=== PATIENT | female | born 1995 | race Caucasian/White ===

== ENCOUNTER → 2018-01-28 16:21 | Outpatient (CLI) | payer OTHER, SELFPAY | PROVIDERS: Visit Provider Otolaryngology Otolaryngology/Facial Plastic Surgery | DX: J02.9 Acute pharyngitis, unspecified (principal); J32.9 Chronic sinusitis, unspecified | CPT/HCPCS: 87070; 87077; 87186 ==

== ENCOUNTER → 2022-09-05 | Outpatient (CLI) | payer OTHER, SELFPAY ==
[2022-09-05 09:31] LABS: NATERA MAILED SPECIMEN
== END | disposition home or self-care (01) ==
PROVIDERS: Referring Provider Obstetrics & Gynecology; Visit Provider Obstetrics & Gynecology
DX: Z31.430 Encounter of female for testing for genetic disease carrier status for procreative management (principal)
CPT/HCPCS: 36415

== ENCOUNTER 2023-03-23 19:55 | Outpatient (CLI) | payer OTHER, SELFPAY ==
[2023-03-23] VITALS (12 sets, daily range): BP systolic 117–178; BP diastolic 67–95; PULSE 64–120; RESP 16; TEMP 36.9; O2SAT 98–100; BMI 35.2
[2023-03-23 20:58] LABS: ROM Internal Control Test YES-OK TO RESULT pt. (Internal QC)
[2023-03-23 20:59] LABS: ROM Patient Test Negative (Negative); Record Kit Lot#, ROM+ K1409
--- NOTE | 2023-03-27 10:35 | OB.TRI.NOTE ---
HPI - General General Date of Admission: 03/23/23 Date of Service: 03/23/23 Chief Complaint: possible leaking of fluid HPI Narrative TALA CAREY 27-year-old 1 para 0 presented on 03/23/2023 with vaginal discharge. She was evaluated in triage. Maternal Data Information Final JERONIMO: 04/11/23 Gestational age: 37 2/7 PFSH PFSH Allergy/AdvReac Type Severity Reaction Status Date / Time No Known Allergies Allergy Verified 03/23/23 20:17 NST FHR Rate Baby A Baseline: 130 Variability:: Moderate Accelerations:: 15 x 15 Decelerations:: None NST Reactive:: Yes FHR Category:: Category I Uterine Activity:: No regular contractions Assessment & Plan (1) 37 weeks gestation of : PLAN: 37-week [place] gravid patient with vaginal discharge. No evidence of spontaneous rupture membranes. Reactive nonstress test. Discharged home with routine follow-up and instructions. Return as needed.
== END 2023-03-23 21:14 | disposition home or self-care (01) ==
LOC: WPOUT 20:06 → WP 20:07
PROVIDERS: Visit Provider Obstetrics & Gynecology
DX: O99.891 Other specified diseases and conditions complicating pregnancy (principal); N89.8 Other specified noninflammatory disorders of vagina; Z3A.37 37 weeks gestation of pregnancy
CPT/HCPCS: 59025; 59050; 84112

== ENCOUNTER 2023-04-06 01:56 | Inpatient (IN) | payer OTHER, SELFPAY ==
[2023-04-06] VITALS (78 sets, daily range): BP systolic 103–177; BP diastolic 53–89; PULSE 81–141; RESP 16–18; TEMP 36.3–37.1; O2SAT 80–100; BMI 35.8
[2023-04-06 01:55] LABS: ROM Internal Control Test YES-OK TO RESULT pt. (Internal QC); ROM Patient Test POSITIVE (Negative)
[2023-04-06 01:56] LABS: Record Kit Lot#, ROM+ K1409
[2023-04-06 02:38] LABS: Absolute Lymphocyte Count 2.62 X10^3/uL (0.83-4.51); Absolute Neutrophil Count 8.4 X10^3/uL (2.0-7.7); Basophil# 0.04 X10^3/uL; Basophil% 0.3 % (0-1); Eosinophil# 0.14 X10^3/uL; Eosinophils% 1.2 % (0-5); Hematocrit 32.1 % (37-47); Hemoglobin 10.1 g/dL (12.0-15.0); Lymphocyte # 2.62 X10^3/ul (0.83-4.51); Mean Corp Hgb Conc 31.5 g/dL (32-36); Mean Corpuscular Volume 79.5 fL (81-99); Mean Platelet Vol. 10.3 fl (6.2-12.0); Monocyte# 0.62 X10^3/uL; Monocyte% 5.2 % (0-10); NRBC Flagged by Analyzer 0 % (0-5); Neutrophil % 70.5 % (47-70); Platelet Count 185 K/mm3 (150-450); RBC Distribution Width CV 14.6 % (11.6-14.6); RBC Distribution Width SD 39.6 fl (35.1-43.9); Red Blood Count 4.04 M/mm3 (4.2-5.4); White Blood Count 11.9 K/mm3 (4.4-11.0)
[2023-04-06] MEDS: miSOPROStol 25 MCG TABLET PO (02:46)
[2023-04-06 04:55] LABS: Syphilis Antibodies Non-reactive
--- NOTE | 2023-04-06 05:07 | NURSING ---
Reviewed and agreed with Darell PELAYO charting.
[2023-04-06] MEDS: 0.9% Normal Saline Single 100 ML IV.SOLN. INTRA-UTER (07:00)
[2023-04-06] MEDS: 0.9% Saline Lock 10 ML Syringe IV (07:55)
[2023-04-06] MEDS: LACTATED RINGERS 500 ML 999 ML IV (07:58)
[2023-04-06] MEDS: Lactated Ringers 1,000 ML 50 ML IV (07:58)
[2023-04-06] MEDS: fentaNYL-bupivacaine (epidural) 100 ML BAG EPIDURAL ×3 (09:09→18:18)
--- NOTE | 2023-04-06 09:18 | PCM.PN.BLA ---
Progress Note Introduced myself to patient- reviewed growth ultrasound findings with patient- approximately 5 weeks ago the EFW was 6lb 1oz (88%) and AC was >99%. reviewed with patient risk for should dystocia. Discussed with patient that would not perform operative vaginal delivery and would not recommend pushing for extended period of time if no descent. On my exam EFW on exam 8.5-9lb pelvis does feel adequate however maternal height 4'9, this was expressed to patient. pt wishes for epidural at this time and to labor at this time.
[2023-04-06] MEDS: ePHEDrine Sulfate 50 MG/ML Ampul 10 MG IM (09:21)
--- NOTE | 2023-04-06 09:44 | HP.PCM.OB_ITS ---
HPI - General General Date of Admission: 04/06/23 HPI Narrative TALA CAREY, is a 27 F at 39.2 weeks gestation who presents with spontaneous rupture of membranes and contractions. complicated by RH negative blood type, anemia and history of vaping. [facility] Medical History (Updated 04/06/23 @ 09:47 by Cathi Guerrero CNM) Anemia History of nicotine vaping PCOS (polycystic ovarian syndrome) Home Medications aspirin 81 mg tablet,delayed release (Adult Aspirin Regimen) 81 mg PO DAILY 04/06/23 [History Last Taken 04/05/23 08:00 81 mg] docosahexaenoic acid 200 mg capsule ( DHA) mg PO DAILY 04/06/23 [History Last Taken 04/05/23 08:00 200 mg] ferrous sulfate 325 mg (65 mg iron) tablet (Feosol) 325 mg PO DAILY 04/06/23 [History Last Taken 04/05/23 08:00 325 mg] omeprazole 20 mg capsule,delayed release 20 mg PO DAILY 04/06/23 [History Last Taken 04/05/23 08:00 20 mg] Allergy/AdvReac Type Severity Reaction Status Date / Time No Known Allergies Allergy Verified 04/06/23 01:39 Surgical History H/O wisdom tooth extraction Social History Smoking Status: Never smoker History Elective abortions Hx Para 0 Spontaneous abortions Hx # Term Pregnancies Ectopic pregnancies Hx # Pregnancies Multiple births # of living children ROS Eyes Eyes: Denies blurry vision, change in vision or spots in vision ENT HEENT: Denies dizziness or headache(s) Cardiovascular Cardiovascular: Denies abdominal pain, chest pain or dyspnea Respiratory/Chest Respiratory/Chest: Denies cough, dyspnea, shortness of breath at rest or shortness of breath with exertion Gastrointestinal Gastrointestinal: Denies abdominal pain, diarrhea or vomiting Genitourinary Genitourinary: Denies change in urinary stream, difficulty urinating or dysuria Musculoskeletal Musculoskeletal: Reports none Integumentary Integumentary: Denies rash Neurologic Neurologic: Denies dizziness, headache(s), memory loss or weakness Psychiatric Psychiatric: Reports none Vital Signs Vital Signs Vital Signs: 04/06/23 01:24 04/06/23 01:24 04/06/23 01:26 Temperature Temperature Source Pulse Rate 99 Blood Pressure 140/86 H 141/89 H BP Systolic 140 141 BP Diastolic 86 89 Pulse Ox 04/06/23 01:26 04/06/23 01:28 04/06/23 01:28 Temperature Temperature Source Pulse Rate 95 96 Blood Pressure BP Systolic BP Diastolic Pulse Ox 99 04/06/23 01:27 04/06/23 01:27 04/06/23 01:49 Temperature 97.7 F L Temperature Source Temporal Pulse Rate 98 Blood Pressure BP Systolic BP Diastolic Pulse Ox 04/06/23 01:49 04/06/23 02:07 04/06/23 02:07 Temperature Temperature Source Pulse Rate 94 Blood Pressure 139/87 H BP Systolic 139 BP Diastolic 87 Pulse Ox 80 04/06/23 06:28 04/06/23 06:28 04/06/23 06:28 Temperature Temperature Source Pulse Rate 106 H Blood Pressure 115/72 BP Systolic 115 BP Diastolic 72 Pulse Ox 99 04/06/23 06:27 04/06/23 06:27 04/06/23 06:27 Temperature 97.5 F L Temperature Source Temporal Pulse Rate Blood Pressure BP Systolic BP Diastolic Pulse Ox 99 04/06/23 07:12 04/06/23 07:12 04/06/23 07:12 Temperature Temperature Source Pulse Rate 110 H Blood Pressure 138/77 H BP Systolic 138 BP Diastolic 77 Pulse Ox 98 04/06/23 07:12 04/06/23 07:12 04/06/23 08:56 Temperature 98.1 F Temperature Source Temporal Pulse Rate 116 H Blood Pressure BP Systolic BP Diastolic Pulse Ox 04/06/23 08:56 04/06/23 09:01 04/06/23 09:01 Temperature Temperature Source Pulse Rate 119 H Blood Pressure BP Systolic BP Diastolic Pulse Ox 100 100 04/06/23 09:02 04/06/23 09:02 04/06/23 09:06 Temperature Temperature Source Pulse Rate 130 H Blood Pressure 131/62 H 177/89 H BP Systolic 131 177 BP Diastolic 62 89 Pulse Ox 04/06/23 09:06 04/06/23 09:06 04/06/23 09:12 Temperature Temperature Source Pulse Rate 117 H 119 H Blood Pressure BP Systolic BP Diastolic Pulse Ox 99 04/06/23 09:12 04/06/23 09:13 04/06/23 09:13 Temperature Temperature Source Pulse Rate 111 H Blood Pressure 110/53 L BP Systolic 110 BP Diastolic 53 Pulse Ox 89 04/06/23 09:16 04/06/23 09:17 04/06/23 09:17 Temperature Temperature Source Pulse Rate 105 H Blood Pressure 103/53 L BP Systolic 103 BP Diastolic 53 Pulse Ox 100 04/06/23 09:22 04/06/23 09:22 04/06/23 09:22 Temperature Temperature Source Pulse Rate 111 H Blood Pressure 114/55 L BP Systolic 114 BP Diastolic 55 Pulse Ox 100 04/06/23 09:22 04/06/23 09:26 04/06/23 09:26 Temperature Temperature Source Pulse Rate 113 H 88 Blood Pressure 109/58 L BP Systolic 109 BP Diastolic 58 Pulse Ox 04/06/23 09:27 04/06/23 09:27 04/06/23 09:30 Temperature Temperature Source Pulse Rate 81 Blood Pressure 108/58 L BP Systolic 108 BP Diastolic 58 Pulse Ox 100 04/06/23 09:30 04/06/23 09:32 04/06/23 09:32 Temperature Temperature Source Pulse Rate 91 89 Blood Pressure BP Systolic BP Diastolic Pulse Ox 100 04/06/23 09:37 04/06/23 09:37 04/06/23 09:38 Temperature Temperature Source Pulse Rate 102 H Blood Pressure 107/60 BP Systolic 107 BP Diastolic 60 Pulse Ox 100 04/06/23 09:38 04/06/23 09:41 04/06/23 09:41 Temperature Temperature Source Pulse Rate 111 H 97 Blood Pressure 113/69 BP Systolic 113 BP Diastolic 69 Pulse Ox 04/06/23 09:42 04/06/23 09:42 Temperature Temperature Source Pulse Rate 113 H Blood Pressure BP Systolic BP Diastolic Pulse Ox 99 Weight Weight: 165 lb 9.074 oz Body Mass Index (BMI) 35.8 Physical Exam Const alert, oriented x3 and no apparent distress General Appearance: cooperative Orientation / Consciousness: awake Exam Limitations: no limitations HEENT normocephalic Head and Scalp: normal to inspection Eyes General Eye: normal appearance of both eyes Neck full ROM and no lymphadenopathy Lymph Lymphatic: no lymphadenopathy noted Chest inspection of chest normal Resp normal respiratory effort, normal air movement and clear to auscultation bilaterally Effort and Inspection: able to speak in complete sentences and symmetric chest movement Cardio regular rate and regular rhythm GI normal to inspection, nondistended, normoactive bowel sounds Amniotic Fluid: clear amniotic fluid Back/Spine normal ROM Extremity full ROM and no calf tenderness Skin no rashes or lesions noted General Skin Exam: no breakdown Neuro oriented x3 and CN's II-XII intact bilaterally Psych mental status grossly normal and thought process normal Labs Labs Labs: Blood Type B NEGATIVE Antibody Screen NEGATIVE Hct 32.1 % (37-47) L Hgb 10.1 g/dL (12.0-15.0) L Syphilis Total Ab Non-reactive VZV IgG Antibody < 135 index (Immune >165) L GBS negative Assessment & Plan (1) 39 weeks gestation of : (2) Anemia: (3) Spontaneous onset of labor: (4) Spontaneous rupture of amniotic membranes: (5) Short stature: PLAN: Plan ROM PLUS- positive Admit to labor and delivery Routine labs Start IV and run fluids per orders GBS negative CE /-2- Forebag ruptured for clear fluids Desires epidural Dr Izaguirre notified of admission and involved with plan of care
[2023-04-06] MEDS: Oxytocin 15 Units/NS 250ml 15 UNITS/250 ML IV.SOLN 2 UNITS IV (10:22)
--- NOTE | 2023-04-06 11:43 | PCM.PN.BLA ---
Progress Note Patient comfortable with epidural. Denies any pain. Assessment & Plan Assessment/Plan (1) Short stature: (2) Spontaneous rupture of amniotic membranes: (3) Spontaneous onset of labor: (4) 39 weeks gestation of : (5) Anemia: PLAN: Plan Continue Pitocin IV and titrate per orders NST reactive. Cat. 1 tracing CE /-2 Continue present plan of care
[2023-04-06] MEDS: Lactated Ringers 1,000 ML 200 ML IV (12:20)
--- NOTE | 2023-04-06 14:21 | PCM.PN.BLA ---
Progress Note Received call from nursing due to patient's heart rate going up to 140 bpm. Patient stated feeling dizzy. Denies any CP or SOB. Assessment & Plan Assessment/Plan (1) Tachycardia: (2) 39 weeks gestation of : (3) Anemia: (4) Spontaneous onset of labor: (5) Spontaneous rupture of amniotic membranes: (6) Short stature: PLAN: Plan Current heart rate is 115 bpm Consult with Anesthesia EKG Continue close monitoring Dr. Izaguirre updated
--- NOTE | 2023-04-06 15:14 | EKG12_ITS ---
Test Reason : TACHY Blood Pressure : / mmHG Vent. Rate : 137 BPM Atrial Rate : 137 BPM P-R Int : 118 ms QRS Dur : 064 ms QT Int : 292 ms P-R-T Axes : 058 067 056 degrees QTc Int : 440 ms Sinus tachycardia Nonspecific ST abnormality Abnormal ECG No previous ECGs available Confirmed by JOSS ESQUIVEL, SHAHRAM ([id number]), manuscript editor HANNAH SINHA ([id number]) on 04/11/2023 9:53:20 AM Referred By: Susanne Pineda Confirmed By:SHAHRAM COREAS MD
[2023-04-06] MEDS: Mag Hydrox/Al Hydrox/Simeth 30 ML UDC PO (16:11)
[2023-04-06] MEDS: Ondansetron 4 MG/2 ML Vial IV (16:17)
[2023-04-06] MEDS: Acetaminophen 500 MG Tablet PO (19:28)
[2023-04-06] MEDS: Sodium Citrate/Citric Acid 30 ML UDC PO (19:31)
[2023-04-06] MEDS: Cefazolin 2 GM in 0.9% Normal Saline (100mL Bag) 100 ML IV (19:40)
[2023-04-06] MEDS: Azithromycin 500 MG in Dextrose 5%-Water (250mL Bag) 250 ML 250 MG IV (19:45)
--- NOTE | 2023-04-06 20:34 | OP.PCM_ITS ---
Details Operative Information Date of Procedure: 04/06/23 Pre-Operative Diagnosis: 39 weeks gestation, LGA, Anemia in , Arrest of dilation Post-Operative Diagnosis: same, live female Indications Narrative: Pt with SROM on 04/05/23 at 2130 - with arrest of dilation at 5.5-6cm/90 x 8 hrs on pitocin with adequate contractions. Classification: JOSE DAVID Procedure Type: low transverse groundskeeper porter #1: Jeana Higginbotham Type of Anesthesia: Epidural Anesthesiologist: Bradley Odom Special Medications: Demarco Antibiotic Given: Ancef 2 grams IV x1 and Zithromax 500 mg/5 mL X1 Drain: Hartman to straight drain Estimated Blood Loss: 600 Fluids Replaced: 700 Procedure Start Time: 20:01 Procedure Stop Time: 20:34 Time of Delivery: 20:04 Findings Description of Procedure: After informed consent was obtained the patient was taken the operating room. She was then placed in the supine position. She was prepped and draped in the normal sterile fashion. Epdiural Anesthesia was found to be adequate. At this time a Pfannenstiel skin incision was made with a knife was carried down to the underlying layer of the fascia. The fascial incision was then extended laterally using gentle traction. Attention was then turned to the superior aspect of the fascial edge was grasped with 2 straight Sharifa clamps tented up and the rectus muscle dissected off bluntly. Rectus muscles were then in the midline bluntly and peritoneum was entered bluntly. Gentle opposing traction was placed. At this time the vesicouterine peritoneum was identified. Scalpel was used to make a uterine incision in a low transverse fashion. The uterus was then entered bluntly gentle opposing traction was placed to extend this incision. Membranes were ruptured clear. 's head was brought to the uterine incision was delivered atraumatically. Delayed cord clamping performed- Cord was clamped and cut infant was handed to the waiting nursery team. The Placenta was removed from the uterus. The uterus was then removed from the abdominal cavity. The uterus was cleared of all clots and debris using a lap. At this time the uterine incision was reapproximated using #1 Vicryl in a running locked fashion. second layer in interrupted firgure of eight fashion using 1-0 vicryl. Hemostasis was appreciated. Posterior cul-de-sac was then cleared of all clots and debris. Uterus was placed back in the abdominal cavity. Gutters were cleared of all clots and debris. Uterine incision was reevaluated and noted to be of excellent hemostasis. Demarco placed. At this time the peritoneum was grasped with Kellys reapproximated using #2 Vicryl suture in a running fashion. Demarco placed over rectus muscle. Fascia was then reapproximated using #1 Vicryl in a running fashion. Subcu layer was irrigated, demarco placed and then reapproximated with #2 0 plain gut suture in an interrupted fashion. Subcu layer was closed using 4-0 Monocryl in a subcu fashion. Dry sterile dressing was applied. Instrument lap needle count correct ?2. Anticipated normal postoperative course. Presentation: Positive for Vertex Amniotic Membrane Rupture Type: Spontaneous Time of Membrane Ruptured: 04/05/23 at 2130 Amniotic Fluid Description: Clear Placental Delivery Description: Expressed Placenta Disposition: [facility] Cord Vessel Description: 3 Vessels Cord Entanglement: None Infant A Gender: Female (1 minute): 9 (5 minute): 9 Delayed Cord Clamping: Yes Complications Risks of Surgery Discussed w/Patient: Bleeding, Anesthesia Risks, Infection and Injury to surrounding structure(s) including bowel and bladder Complications: none
--- NOTE | 2023-04-06 20:40 | NURSING ---
Epidural catheter removed in OR at 2039 and blue tip confirmed and intact by Dr. Cuevas and Trey PELAYO
[2023-04-06] MEDS: Oxytocin 15 Units/NS 250ml 15 UNITS/250 ML IV.SOLN 83 UNITS IV (20:45)
[2023-04-06] MEDS: Ketorolac 30 MG/ML Syringe IV (21:26)
[2023-04-06] MEDS: Lactated Ringers 1,000 ML 100 ML IV (22:45)
[2023-04-07] VITALS (8 sets, daily range): BP systolic 98–127; BP diastolic 53–85; PULSE 79–107; RESP 14–18; TEMP 36.3–37.2; O2SAT 96–99
--- NOTE | 2023-04-07 00:59 | NURSING ---
Reviewed and agreed with Darell PELAYO charting. Report given to Shanelle PELAYO, taking over pt care at this time.
[2023-04-07] MEDS: Acetaminophen 500 MG Tablet 1000 MG PO ×4 (01:30→19:51)
[2023-04-07] MEDS: Ketorolac 30 MG/ML Syringe IV ×3 (04:00→17:22)
[2023-04-07 04:30] LABS: Hematocrit 23.5 % (37-47); Hemoglobin 7.4 g/dL (12.0-15.0); Mean Corp Hgb Conc 31.5 g/dL (32-36); Mean Corpuscular Hgb 24.9 pg (27.0-32.0); Mean Corpuscular Volume 79.1 fL (81-99); Mean Platelet Vol. 10.4 fl (6.2-12.0); Platelet Count 165 K/mm3 (150-450); RBC Distribution Width CV 14.8 % (11.6-14.6); RBC Distribution Width SD 39.8 fl (35.1-43.9); Red Blood Count 2.97 M/mm3 (4.2-5.4); White Blood Count 10.5 K/mm3 (4.4-11.0)
--- NOTE | 2023-04-07 05:19 | CPS ---
COACH OPERATOR left IS for RN to go over patient with, patient asleep
[2023-04-07] MEDS: Enoxaparin 40 MG/0.4 ML Syringe SC (07:57)
--- NOTE | 2023-04-07 09:07 | PCM.PN.OB ---
Subjective Subjective Doing well per patient and nursing staff. Ambulating and taking PO without difficulty. Voiding and passing flatus. Pain controlled. , services for assistance. Denies headache, visual changes, chest pain, shortness of breath, leg pain or increased bleeding. Lochia normal. Objective Data Objective Data Vital Signs: Vital Signs Temp Pulse Resp BP Pulse Ox O2 Del Method 97.3 F L 84 14 110/53 L 96 Room Air 04/07/23 08:01 04/07/23 08:01 04/07/23 08:01 04/07/23 08:01 04/07/23 08:01 04/07/23 08:01 Oxygen Delivery Method Room Air Weight: 165 lb 9.074 oz Body Mass Index (BMI) 35.8 Intake & Output: Intake and Output for Last 24 Hours 04/05/23 04/06/23 04/07/23 23:59 23:59 23:59 Intake Total 3176.30 / 3176.30 616.67 / 616.67 Output Total 1575 / 1575 400 / 400 Balance 1601.30 / 1601.30 216.67 / 216.67 Lab / Micro Data 04/07/23 04:10 Labs: Laboratory Results - last 24 hr 04/07/23 04:10: WBC 10.5, RBC 2.97 L, Hgb 7.4 L, Hct 23.5 L, MCV 79.1 L, MCH 24.9 L, MCHC 31.5 L, RDW Std Deviation 39.8, RDW Coeff of Zoila 14.8 H, Plt Count 165, MPV 10.4, Screen NEGATIVE, Baby's Blood Type O POSITIVE, Baby's JANE NEGATIVE ROS Constitutional Constitutional: Reports systems reviewed and no addt'l complaints, except as documented; Denies headache(s) Eyes Eyes: Denies acute decrease in peripheral vision, blurry vision or change in vision ENT HEENT: Reports systems reviewed and no addt'l complaints, except as documented Cardiovascular Cardiovascular: Denies chest pain or dizziness Respiratory/Chest Respiratory/Chest: Denies cough, dyspnea, dyspnea on exertion, shortness of breath at rest or shortness of breath with exertion Gastrointestinal Gastrointestinal: Denies abdominal pain, diarrhea, nausea or vomiting Genitourinary Genitourinary: Denies abdominal discomfort Musculoskeletal Musculoskeletal: Denies limited range of motion Integumentary Integumentary: Reports systems reviewed and no addt'l complaints, except as documented Neurologic Neurologic: Reports systems reviewed and no addt'l complaints, except as documented Psychiatric Psychiatric: Reports systems reviewed and no addt'l complaints, except as documented Endocrine Endocrinology: Reports systems reviewed and no addt'l complaints, except as documented Hematologic/Lymphatic Hematologic/Lymphatic: Reports systems reviewed and no addt'l complaints, except as documented Allergic/Immunologic Allergic/Immunologic: Reports systems reviewed and no addt'l complaints, except as documented Physical Exam Const alert and oriented x3 General Appearance: cooperative Orientation / Consciousness: awake, oriented to person, oriented to place and oriented to time Exam Limitations: no limitations HEENT normocephalic Head and Scalp: normal to inspection, normocephalic and atraumatic Face and Sinus: normal facial exam Eyes General Eye: normal appearance of both eyes Neck full ROM Chest Chest: symmetrical chest wall rise Resp normal respiratory effort and normal air movement Auscultation: clear to auscultation bilaterally Cardio regular rate, regular rhythm, S1 normal heart sound, S2 normal heart sound, no murmurs, no rub, no gallops and no clicks Cardio Narrative: Fundus firm 2 below U. Dressing dry and intact. Old blood with no increased drainage. GI normal to inspection, nondistended, normoactive bowel sounds and non-tender appearance of the vagina normal Bladder / Kidney Exam: no CVA tenderness Back/Spine normal ROM Extremity normal to inspection and full ROM Skin no rashes or lesions noted Neuro oriented x3, CN's II-XII intact bilaterally and moves all extremities Sensorium / Orientation: awake, alert and oriented to person Motor Exam: clonus absent Assessment & Plan (1) Status post primary low transverse section: (2) Acute blood loss anemia: (3) (): PLAN: Plan 1) POD#1 primary LTCS 2) Routine care 3) I&O 4) Pain management 5) Hgb decreased to 7.4 from 10.1 predelivery. Iron infusion with repeat CBC at 12 and 10/24 in am. 6) Planning D/C home tomorrow
[2023-04-07] MEDS: 0.9% Saline Lock 10 ML Syringe IV ×4 (10:31→17:22)
[2023-04-07] MEDS: Senna/Docusate Sodium 1 Tablet PO (10:32)
[2023-04-07 14:08] LABS: Absolute Lymphocyte Count 2.33 X10^3/uL (0.83-4.51); Absolute Neutrophil Count 7.6 X10^3/uL (2.0-7.7); Basophil# 0.03 X10^3/uL; Basophil% 0.3 % (0-1); Eosinophil# 0.05 X10^3/uL; Eosinophils% 0.5 % (0-5); Hemoglobin 7.1 g/dL (12.0-15.0); Lymphocyte # 2.33 X10^3/ul (0.83-4.51); Lymphocyte % 21.9 % (19-41); Mean Corp Hgb Conc 30.9 g/dL (32-36); Mean Corpuscular Hgb 24.8 pg (27.0-32.0); Mean Corpuscular Volume 80.4 fL (81-99); Mean Platelet Vol. 10.6 fl (6.2-12.0); Monocyte# 0.56 X10^3/uL; Monocyte% 5.3 % (0-10); NRBC Flagged by Analyzer 0 % (0-5); Neutrophil # 7.62 X10^3/uL (2.7-7.7); Neutrophil % 71.5 % (47-70); Platelet Count 188 K/mm3 (150-450); RBC Distribution Width CV 15.1 % (11.6-14.6); RBC Distribution Width SD 40.4 fl (35.1-43.9); Red Blood Count 2.86 M/mm3 (4.2-5.4); White Blood Count 10.6 K/mm3 (4.4-11.0)
[2023-04-07] MEDS: Iron Sucrose Complex 100 MG in 0.9% Normal Saline (100mL Bag) 100 ML 420 MG IV (14:22)
[2023-04-08] MEDS: Ibuprofen 600 MG Tablet PO ×3 (00:05→11:39)
[2023-04-08 01:58] VITALS: BP 118/68; PULSE 90; RESP 17; TEMP 36.3; O2SAT 98
[2023-04-08] MEDS: Acetaminophen 500 MG Tablet 1000 MG PO ×2 (02:10→08:16)
[2023-04-08 05:09] LABS: Absolute Lymphocyte Count 1.64 X10^3/uL (0.83-4.51); Absolute Neutrophil Count 6.7 X10^3/uL (2.0-7.7); Basophil# 0.04 X10^3/uL; Basophil% 0.4 % (0-1); Eosinophil# 0.07 X10^3/uL; Eosinophils% 0.8 % (0-5); Hematocrit 24.2 % (37-47); Hemoglobin 7.6 g/dL (12.0-15.0); Lymphocyte # 1.64 X10^3/ul (0.83-4.51); Lymphocyte % 18.1 % (19-41); Mean Corp Hgb Conc 31.4 g/dL (32-36); Mean Corpuscular Hgb 25.4 pg (27.0-32.0); Mean Corpuscular Volume 80.9 fL (81-99); Mean Platelet Vol. 9.9 fl (6.2-12.0); Monocyte# 0.53 X10^3/uL; Monocyte% 5.8 % (0-10); NRBC Flagged by Analyzer 0 % (0-5); Neutrophil # 6.73 X10^3/uL (2.7-7.7); Neutrophil % 74.3 % (47-70); Platelet Count 187 K/mm3 (150-450); RBC Distribution Width CV 15.9 % (11.6-14.6); RBC Distribution Width SD 41.3 fl (35.1-43.9); Red Blood Count 2.99 M/mm3 (4.2-5.4); White Blood Count 9.1 K/mm3 (4.4-11.0)
[2023-04-08] MEDS: 0.9% Saline Lock 10 ML Syringe IV (06:05)
[2023-04-08 08:00] VITALS: BP 116/72; PULSE 77; RESP 16; TEMP 36.2
[2023-04-08] MEDS: Senna/Docusate Sodium 1 Tablet PO (08:15)
[2023-04-08] MEDS: Enoxaparin 40 MG/0.4 ML Syringe SC (08:17)
--- NOTE | 2023-04-08 10:22 | PCM.PN.OB ---
Subjective Subjective Pain controlled Objective Data Objective Data Vital Signs: Vital Signs Temp Pulse Resp BP Pulse Ox O2 Del Method 97.1 F L 77 16 116/72 98 Room Air 04/08/23 08:00 04/08/23 08:00 04/08/23 08:00 04/08/23 08:00 04/08/23 01:58 04/08/23 01:58 Oxygen Delivery Method Room Air Weight: 165 lb 9.074 oz Body Mass Index (BMI) 35.8 Intake & Output: Intake and Output for Last 24 Hours 04/06/23 04/07/23 04/08/23 23:59 23:59 23:59 Intake Total 3176.30 / 3176.30 721.67 / 721.67 Output Total 1575 / 1575 1050 / 1050 Balance 1601.30 / 1601.30 -328.33 / -328.33 Lab / Micro Data 04/08/23 05:02 Labs: Laboratory Results - last 24 hr 04/07/23 13:50: WBC 10.6, RBC 2.86 L, Hgb 7.1 L, Hct 23.0 L, MCV 80.4 L, MCH 24.8 L, MCHC 30.9 L, RDW Std Deviation 40.4, RDW Coeff of Zoila 15.1 H, Plt Count 188, MPV 10.6, Immature Gran % (Auto) 0.500, Neut % (Auto) 71.5 H, Lymph % (Auto) 21.9, [place] % (Auto) 5.3, Eos % (Auto) 0.5, Baso % (Auto) 0.3, Absolute Neuts (auto) 7.6, Absolute Lymphs (auto) 2.33, Nucleated RBC % 0 04/08/23 05:02: WBC 9.1, RBC 2.99 L, Hgb 7.6 L, Hct 24.2 L, MCV 80.9 L, MCH 25.4 L, MCHC 31.4 L, RDW Std Deviation 41.3, RDW Coeff of Zoila 15.9 H, Plt Count 187, MPV 9.9, Immature Gran % (Auto) 0.600, Neut % (Auto) 74.3 H, Lymph % (Auto) 18.1 L, [place] % (Auto) 5.8, Eos % (Auto) 0.8, Baso % (Auto) 0.4, Absolute Neuts (auto) 6.7, Absolute Lymphs (auto) 1.64, Nucleated RBC % 0 Physical Exam Const alert, oriented x3 and no apparent distress HEENT normocephalic GI soft to palpation, non-tender and non-distended GI Narrative: fundus firm, mid & below umbilicus Incision - bandage c/d/i Extremity normal to inspection and no calf tenderness Assessment & Plan (1) Status post primary low transverse section: COMMENT: POD#2 PLAN: Plan D/c home per patient request
--- NOTE | 2023-04-08 10:25 | PCM.DC.SUM ---
Providers Date of Admission: 04/06/23 Primary Care Physician: Stacia Primary Care Phys Reason For Visit: Diagnosis Discharge Diagnosis (1) Status post primary low transverse section: Status: Acute Code(s): Z98.891 - History of uterine scar from previous surgery Plan D/c home per patient request Medications at Discharge Home Medications docosahexaenoic acid 200 mg capsule ( DHA) mg PO DAILY 04/06/23 ferrous sulfate 325 mg (65 mg iron) tablet (Feosol) 325 mg PO DAILY 04/06/23 omeprazole 20 mg capsule,delayed release 20 mg PO DAILY 04/06/23 acetaminophen 500 mg tablet 1,000 mg (2 x 500 mg) PO Q6H #0 tabs 04/08/23 ibuprofen 600 mg tablet 600 mg PO Q6H #0 tabs 04/08/23 Hospital Course Summary of Care Provided Minutes Spent on Discharge: 15 Weight / BMI Weight Weight: 165 lb 9.074 oz Body Mass Index (BMI) 35.8 ABG / Lab / Microbiology Data 04/08/23 05:02 Laboratory: Laboratory Results - last 24 hr 04/07/23 13:50: WBC 10.6, RBC 2.86 L, Hgb 7.1 L, Hct 23.0 L, MCV 80.4 L, MCH 24.8 L, MCHC 30.9 L, RDW Std Deviation 40.4, RDW Coeff of Zoila 15.1 H, Plt Count 188, MPV 10.6, Immature Gran % (Auto) 0.500, Neut % (Auto) 71.5 H, Lymph % (Auto) 21.9, [place] % (Auto) 5.3, Eos % (Auto) 0.5, Baso % (Auto) 0.3, Absolute Neuts (auto) 7.6, Absolute Lymphs (auto) 2.33, Nucleated RBC % 0 04/08/23 05:02: WBC 9.1, RBC 2.99 L, Hgb 7.6 L, Hct 24.2 L, MCV 80.9 L, MCH 25.4 L, MCHC 31.4 L, RDW Std Deviation 41.3, RDW Coeff of Zoila 15.9 H, Plt Count 187, MPV 9.9, Immature Gran % (Auto) 0.600, Neut % (Auto) 74.3 H, Lymph % (Auto) 18.1 L, [place] % (Auto) 5.8, Eos % (Auto) 0.8, Baso % (Auto) 0.4, Absolute Neuts (auto) 6.7, Absolute Lymphs (auto) 1.64, Nucleated RBC % 0 D/C Instructions Discharge Diet: No restrictions Discharge Activity: May Shower May resume sexual activity in: 6 weeks Weight Bearing Status: Weight bearing as tolerated Call your doctor if your incision/area has: Continuous Slow Oozing, Sudden Increased Bleeding, Increased Pain/ Swelling, Increased Redness, Foul Smelling Discharge and Swelling at the incision site Call your doctor if you observe: Fever of 101 or Higher, Coldness, Increased Pain, Change in Color, Inability to urinate, Inability to have a bowel movement, Using more than 1 pad per hour, Shortness of breath, Dizziness, Fainting spells, Chest pain, Increased palpitations (irregular heartbeat), Calf discomfort and Uncontrolled pain Suture Line Care: Avoid Pulling/Pushing and Avoid Pinching/Bending Remove Dressing in: 1 week Cleanse incision/area with: Soap & Water Please Follow Up With: Susanne Pineda MD When: Follow up in 2 and 6 weeks for visits. Meaningful Use Info Meaningful Use Diagnoses (Choose all that apply): None applicable Discharge Plan Admission Admit Date/Time: 04/06/23 01:56 Primary Reason for Your Visit: section Attending Provider: Susanne Pineda Primary Care Provider: Care Physician,No Primary Discharge Orders/Prescriptions Prescriptions: New acetaminophen 500 mg Tablet 1,000 mg PO Q6H Qty: 0 0RF ibuprofen 600 mg Tablet 600 mg PO Q6H Qty: 0 0RF Continued ferrous sulfate [Feosol] 325 mg (65 mg iron) tablet 325 mg PO DAILY DHA 200 mg capsule PO DAILY omeprazole 20 mg capsule,delayed release(DR/EC) 20 mg PO DAILY Discontinued aspirin [Adult Aspirin Regimen] 81 mg tablet,delayed release (DR/EC) 81 mg PO DAILY Referrals / Follow Up: Care Physician,No Primary [Primary Care Provider] - Disposition Disposition (needs filled in before D/C Order can be placed): Home, Self Care
== END 2023-04-08 13:00 | disposition home or self-care (01) | DRG 787 ==
LOC: WPOUT 01:57 → WP 01:57
PROVIDERS: Advanced Practice Midwife; Admitting Provider Obstetrics & Gynecology; Referring Provider Obstetrics & Gynecology; Visit Provider Obstetrics & Gynecology
DX: O62.0 Primary inadequate contractions (principal); D62 Acute posthemorrhagic anemia; O42.92 Full-term premature rupture of membranes, unspecified as to length of time between rupture and onset of labor; O36.63X0 Maternal care for excessive fetal growth, third trimester, not applicable or unspecified; O99.892 Other specified diseases and conditions complicating childbirth; R00.0 Tachycardia, unspecified; R42 Dizziness and giddiness; Z37.0 Single live birth; Z3A.39 39 weeks gestation of pregnancy; Z87.891 Personal history of nicotine dependence; O99.02 Anemia complicating childbirth
CPT/HCPCS: 59025; 59050; 84112; 85025; 85027; 85461; 86780; 86850; 86900; 86901; 93005; 99221; J1756; J7120; A4216; G0378; J2405; J2790

== ENCOUNTER → 2023-06-30 | Outpatient (CLI) | payer OTHER, SELFPAY ==
--- OUTSIDE RECORDS SUMMARY | 2023-06-30 07:17 | XMS RPT_ITS | CCD ---
Author Name Unknown Address [address] [place] [address] Organization [facility] Care Team Providers Care Type Disk Quality Control Supervisor Name Role Phone Unavailable Primary Care Provider Unavailabl e NEMANNYT AMEENA, JULIAN Attending Unavail able NEYMARLEET LINDQUIST, JULIAN Referring Unavail able DIANE CONTRERAS Attending Unavailable NEYHART LINDQUIST, JULIAN Referring Unavail able CATHI STEWART Attending Unavailable PLOTTS, CATHI Referring Unavailable PLOTTSCATHI Attending Unavailable PLOTTS, CATHI Referring Unavailable WON DEVLIN Attending Unavailable PLOTTSCATHI Attending Unavailable QUITA, KARMON Referring Unavailable JOSE MANUEL RUSSELL Attending Unavailable WISWELLSUMIT Attending Unavailable DARSHANA, GAYE Referring Unavailable PLOTTS, CATHI Attending Unavailable PLOTTS, CATHI Referring Unavailable WISWELL SUMIT Attending Unavailable PLOTTS, CATHI Attending Unavailable BERRY JOSE MANUEL Referring Unavailable QUITA, KARMON Referring Unavailable QUITA, KARMON Referring Unavailable QUITA, KARMON Referring Unavailable JOSE MANUEL RUSSELL Attending Unavailable PLOTTSCATHI Attending Unavailable NEYMARLEET AMEENA, JULIAN Attending Unavail able NEYMARLEET LINDQUISTBRISEIDA FOXRE Attending Unavail able WON DEVLIN Attending Unavailable NEYHART LINDQUIST, JULIAN Referring Unavail able DIANE CONTRERAS Attending Unavailable NEYHART LINDQUIST, JULIAN Attending Unavail able NEYHART LINDQUIST, JULIAN Referring Unavail able WON DEVLIN Attending Unavailable NEYHART LINDQUIST, JULIAN Referring Unavail able PLOTCATHI CONNELLY Attending Unavailable NEYHART LINDQUIST, JULIAN Attending Unavail able NEYHART LINDQUIST, JULIAN Referring Unavail able NEYHART LINDQUIST, JULIAN Attending Unavail able NEYHART LINDQUIST, JULIAN Referring Unavail able NEBRISEIDA HORANRE Referring Unavail able NEJULIAN HORAN Referring Unavail able Medications Completed/Discontinued Medications Medication Drug Class(es) Dates Sig (Normalized) Sig (Original) aspirin 81 mg delayed release oral tablet (18 sources) Platelet Aggregation Inhibitor, Nonsteroidal Anti-inflammatory Drug Start: 10-01-2022 take 1 tablet by mouth once daily aspirin, enteric coated (ASPIRIN, ENTERIC COATED) 81 mg EC tablet Take 1 tablet by mouth once daily. 0 10/01/2022 Active Problems Active Problems Problem Classification Problem Date Documented Date Episodic/Chronic Immunizations and screening for infectious disease (4 sources) Patient encounter status; Translations: [Encounter for screening for infections with a predominantly sexual mode of transmission] Episodic Other complications of (20 sources) Obesity; Translations: [Obesity complicating , unspecified trimester] Onset: 09-03-2022 Chronic Other complications of (4 sources) Maternal obesity complicating , childbirth and the puerperium, antepartum; Translations: [Obesity complicating , second trimester] Chronic Other complications of (14 sources) Anemia in mother complicating , childbirth AND/OR puerperium; Translations: [Anemia complicating , third trimester] Onset: 01-17-2023 01-17-2023 Chronic Other complications of (1 source) Anemia during - baby not yet delivered; Translations: [Anemia complicating , third trimester] 02-11-2023 Chronic Other complications of (1 source) Anemia of ; Translations: [Anemia complicating , third trimester] 03-28-2023 Chronic Other complications of (1 source) Obesity complicating , second trimester; Translations: [Obesity complicating , second trimester] Onset: 11-21-2022 Chronic Other complications of (1 source) Obesity complicating , unspecified trimester; Translations: [Obesity in ] Onset: 09-03-2022 Chronic Other complications of (1 source) Nausea and vomiting; Translations: [Vomiting of , unspecified] Episodic Other complications of (1 source) Reduced movement; Translations: [Decreased movements, third trimester, not applicable or unspecified] 02-14-2023 Episodic Other complications of (1 source) Uterine size for dates discrepancy; Translations: [Uterine size-date discrepancy, third trimester] 03-28-2023 Episodic Other endocrine disorders (1 source) Polycystic ovary syndrome; Translations: [Polycystic ovarian syndrome] Chronic Other endocrine disorders (2 sources) Polycystic ovarian syndrome; Translations: [PCOS (polycystic ovarian syndrome)] Onset: 07-29-2022 Chronic Other and delivery including normal (17 sources) test positive; Translations: [Encounter for test, result positive] Onset: 08-09-2022 Episodic Residual codes; unclassified (1 source) Gestation period, 16 weeks; Translations: [16 weeks gestation of ] Episodic Residual codes; unclassified (1 source) Gestation period, 23 weeks; Translations: [23 weeks gestation of ] Episodic Residual codes; unclassified (1 source) Gestation period, 27 weeks; Translations: [27 weeks gestation of ] 01-16-2023 Episodic Residual codes; unclassified (1 source) Gestation period, 29 weeks; Translations: [29 weeks gestation of ] 01-28-2023 Episodic Residual codes; unclassified (1 source) Gestation period, 31 weeks; Translations: [31 weeks gestation of ] 02-11-2023 Episodic Residual codes; unclassified (1 source) Gestation period, 32 weeks; Translations: [32 weeks gestation of ] 02-14-2023 Episodic Residual codes; unclassified (1 source) Gestation period, 34 weeks; Translations: [34 weeks gestation of ] 02-28-2023 Episodic Residual codes; unclassified (1 source) Gestation period, 37 weeks; Translations: [37 weeks gestation of ] 03-21-2023 Episodic Residual codes; unclassified (2 sources) Gestation period, 38 weeks; Translations: [38 weeks gestation of ] 03-28-2023 Episodic Residual codes; unclassified (1 source) 38 weeks gestation of ; Translations: [38 weeks gestation of ] Onset: 04-01-2023 Episodic Residual codes; unclassified (1 source) 37 weeks gestation of ; Translations: [37 weeks gestation of ] Onset: 03-28-2023 Episodic Residual codes; unclassified (1 source) 35 weeks gestation of ; Translations: [35 weeks gestation of ] Onset: 03-12-2023 Episodic Past or Other Problems Problem Classification Problem Date Documented Da te Episodic/Chronic Abdominal pain (5 sources) Pain in pelvis; Translations: [Pelvic and perineal pain] Onset: 07-29-2022 Episodic Diabetes or abnormal glucose tolerance complicating ; childbirth; or the puerperium (17 sources) Abnormal glucose level; Translations: [Abnormal glucose complicating ] Onset: 01-17-2023 01-17-2023 Episodic Other complications of (20 sources) RhD negative; Translations: [Other specified related conditions, unspecified trimester] Onset: 09-06-2022 09-06-2022 Episodic Other complications of (1 source) Vomiting of , unspecified; Translations: [Nausea and vomiting in ] Onset: 10-30-2022 Episodic Other screening for suspected conditions (not mental disorders or infectious disease) (4 sources) Encounter for other specified screening; Translations: [Encounter for screening, unspecified] Onset: 08-13-2022 Episodic Residual codes; unclassified (20 sources) FH: Congenital heart disease; Translations: [Family history of other congenital malformations, deformations and chromosomal abnormalities] Onset: 08-21-2022 Episodic Residual codes; unclassified (1 source) 31 weeks gestation of ; Translations: [31 weeks gestation of ] Onset: 02-28-2023 Episodic Residual codes; unclassified (1 source) 23 weeks gestation of ; Translations: [23 weeks gestation of ] Onset: 01-16-2023 Episodic Residual codes; unclassified (1 source) 19 weeks gestation of ; Translations: [19 weeks gestation of ] Onset: 11-21-2022 Episodic Residual codes; unclassified (1 source) 16 weeks gestation of ; Translations: [16 weeks gestation of ] Onset: 10-30-2022 Episodic Residual codes; unclassified (1 source) 12 weeks gestation of ; Translations: [12 weeks gestation of ] Onset: 10-01-2022 Episodic Screening and history of mental health and substance abuse codes (20 sources) History of clinical finding in subject; Translations: [Personal history of nicotine dependence] Onset: 08-21-2022 Episodic Results Test Name Value Interpretation Reference Range Facil ity Vital Signs Date Time Vital Sign Value Performing Clinician Marichuy brewer 05-15-2023 14:31-0500 Body temperature 97.5 [degF] Cathi Plotts PLATE DEVELOPER.CNM Work Phone: [facility] 05-15-2023 14:31-0500 Body weight 62.78 kg Cathi Stewart PLATE DEVELOPER.CNM Work Phone: [facility] 05-15-2023 14:31-0500 Diastolic blood pressure 68 mm[Hg] Cathi Stewart PLATE DEVELOPER.CNM Work Phone: [facility] 05-15-2023 14:31-0500 Systolic blood pressure 100 mm[Hg] Cathi Stewart PLATE DEVELOPER.CNM Work Phone: [facility] 04-01-2023 14:34-0400 Body weight 73.03 kg Jose Manuel Russell PLATE DEVELOPER.CNM Work Phone: [facility] 04-01-2023 14:34-0400 Diastolic blood pressure 70 mm[Hg] Jose Manuel Russell PLATE DEVELOPER.CNM Work Phone: [facility] 04-01-2023 14:34-0400 Systolic blood pressure 118 mm[Hg] Jose Manuel Russell PLATE DEVELOPER.CNM Work Phone: [facility] 03-28-2023 16:06-0400 Body weight 72.12 kg Diane Contreras MD Work Phone: [facility] 03-28-2023 16:06-0400 Diastolic blood pressure 70 mm[Hg] Diane Contreras MD Work Phone: [facility] 03-28-2023 16:06-0400 Systolic blood pressure 102 mm[Hg] Diane Contreras MD Work Phone: [facility] 03-21-2023 11:14-0400 Body weight 71.49 kg Jose Manuel Russell PLATE DEVELOPER.CNM Work Phone: [facility] 03-21-2023 11:14-0400 Diastolic blood pressure 68 mm[Hg] Jose Manuel Russell PLATE DEVELOPER.CNM Work Phone: [facility] 03-21-2023 11:14-0400 Systolic blood pressure 112 mm[Hg] Jose Manuel Russell PLATE DEVELOPER.CNM Work Phone: [facility] 02-14-2023 11:42-0400 Body weight 70.58 kg Won Devlin MD Work Phone: [facility] 02-14-2023 11:42-0400 Diastolic blood pressure 74 mm[Hg] Won Devlin MD Work Phone: [facility] 02-14-2023 11:42-0400 Systolic blood pressure 111 mm[Hg] Won Devlin MD Work Phone: [facility] 02-11-2023 16:09-0400 Body weight 68.95 kg Julian Lindquist MD Work Phone: [facility] 02-11-2023 16:09-0400 Diastolic blood pressure 66 mm[Hg] Julian Lindquist MD Work Phone: [facility] 02-11-2023 16:09-0400 Systolic blood pressure 120 mm[Hg] Julian Lindquist MD Work Phone: [facility] 01-28-2023 14:23-0400 Body weight 68.04 kg Julian Lindquist MD Work Phone: [facility] 01-28-2023 14:23-0400 Diastolic blood pressure 68 mm[Hg] Julian Lindquist MD Work Phone: [facility] 01-28-2023 14:23-0400 Systolic blood pressure 110 mm[Hg] Julian Lindquist MD Work Phone: [facility] 01-16-2023 15:34-0400 Body weight 68.49 kg Sumit Elias MD Work Phone: [facility] 01-16-2023 15:34-0400 Diastolic blood pressure 60 mm[Hg] Sumit Elias MD Work Phone: [facility] 01-16-2023 15:34-0400 Systolic blood pressure 100 mm[Hg] Sumit Elias MD Work Phone: [facility] 12-19-2022 16:11-0400 Body weight 67.13 kg Julian Lindquist MD Work Phone: [facility] 12-19-2022 16:11-0400 Diastolic blood pressure 70 mm[Hg] Julian Lindquist MD Work Phone: [facility] 12-19-2022 16:11-0400 Systolic blood pressure 108 mm[Hg] Julian Lindquist MD Work Phone: [facility] 10-30-2022 16:13-0400 Body weight 63.05 kg Julian Lindquist MD Work Phone: [facility] 10-30-2022 16:13-0400 Diastolic blood pressure 64 mm[Hg] Julian Lindquist MD Work Phone: [facility] 10-30-2022 16:13-0400 Systolic blood pressure 110 mm[Hg] Julian Lindquist MD Work Phone: [facility] 09-03-2022 10:08-0400 Body height 144.8 cm Julian Lindquist MD Work Phone: [facility] 09-03-2022 10:08-0400 Body weight 69.4 kg Julian Lindquist MD Work Phone: [facility] 09-03-2022 10:08-0400 Diastolic blood pressure 64 mm[Hg] Julian Lindquist MD Work Phone: [facility] 09-03-2022 10:08-0400 Systolic blood pressure 100 mm[Hg] Julian Lindquist MD Work Phone: [facility] 08-02-2022 13:19-0500 Body weight 70.4 kg Won Devlin MD Work Phone: [facility] 08-02-2022 13:19-0500 Diastolic blood pressure 70 mm[Hg] Won Devlin MD Work Phone: [facility] 08-02-2022 13:19-0500 Systolic blood pressure 102 mm[Hg] Won Devlin MD Work Phone: [facility] 07-24-2022 09:40-0500 Body weight 69.58 kg Cathi Stewart PLATE DEVELOPER.CNM Work Phone: [facility] 07-24-2022 09:40-0500 Diastolic blood pressure 68 mm[Hg] Cathi Stewart PLATE DEVELOPER.CNM Work Phone: [facility] 07-24-2022 09:40-0500 Systolic blood pressure 100 mm[Hg] Cathi Violetafernie PLATE DEVELOPER.CNM Work Phone: [facility] Encounters Encounter Date Encounter Type Care Provider Facility Start: 06-06-2023 End: 06-06-2023 ambulatory [facility] Facility:[facility] Start: 05-15-2023 End: 05-15-2023 ambulatory [facility] Facility:[facility] Start: 05-15-2023 End: 05-15-2023 Patient encounter procedure Cathi Stewart PLATE DEVELOPER.CNM Work Phone: OB/Gynecology Procedures Date Procedure Procedure Detail Performing Clinician Start: 04-01-2023 URINE OB DIP B/O Sammy Russell PLATE DEVELOPER.CNM Work Phone: Start: 03-28-2023 URINE OB DIP B/O Farooq Contreras MD Work Phone: Start: 03-21-2023 Iadna streptococcus group b amplified probe tq Jose Manuel Russell PLATE DEVELOPER.CNM Work Phone: Start: 03-21-2023 URINE OB DIP B/O Sammy Russell APRN.CNM Work Phone: Start: 02-28-2023 Us preg uterus after 1st trimest 1/ gestation Julian Lindquist MD Work Phone: Start: 02-14-2023 URINE OB DIP B/O Won Devlin MD Work Phone: Start: 02-11-2023 URINE OB DIP B/O Julian Lindquist MD Work Phone: Start: 01-28-2023 URINE OB DIP B/O Julian Lindquist MD Work Phone: Start: 01-16-2023 Antibody screen JULIAN LINDQUIST Plan of Treatment Date Care Activity Detail Author Start: 01-16-2033 Urine microalbumin profile [facility] Start: 10-27-2023 PAP TESTING PAP TESTING [facility] Start: 03-28-2023 End: 03-28-2024 OBSTETRIC ULTRASOUND [facility] Work Phone: Immunizations Immunization Date Immunization Notes Care Provider Viviana frias 01-16-2023 RHO(D) immune globul in- IV or IM Gaye Caputa PLATE DEVELOPER.SCIENCE TUTOR Work Phone: [facility] 01-16-2023 tetanus toxoid, redu domi diphtheria toxoid, and acellular pertussis vaccine, adsorbed Gaye Darshana PLATE DEVELOPER.SCIENCE TUTOR Work Phone: [facility] Payers Date Payer Category Payer Unknown [id number] 2020 Private Health Insurance IZABEL Isaac JENNAMorena JIMENEZ [id number] 2020-Present [phone] [address] [place] [address] Open Access [id number] 2020 Private Health Insurance [id number] 2020 Private Health Insurance [id number] Social History Date Type Detail Facility Start: 05-19-2018 End: 07-24-2022 Tobacco smoking status NHIS Never smoked tobacco [facility] Start: 05-19-2018 End: 07-24-2022 Tobacco use and exposure Smokeless tobacco non-user [facility] Start: 10-26-2020 End: 07-29-2022 Alcohol intake Current drinker of alcohol (finding) [facility] Start: 07-02-2019 History SDOH Alcohol Comment Socially [facility] Start: 1995 Sex Assigned At Not on file [facility] Start: 10-12-2021 End: 10-22-2021 Exposure to SARS-CoV-2 (event) Not sure [facility] Work Phone: Start: 1995 Sex Assigned At Female [facility] Start: 08-21-2022 End: 05-15-2023 Alcohol intake Ex-drinker (finding) [facility] Start: 08-21-2022 Education 16 [facility] Start: 07-19-2022 [facility] Start: 10-30-2022 End: 11-21-2022 History of Social function [facility] Start: 10-30-2022 End: 11-21-2022 Tobacco use panel [facility] National Score (1-10 0), lower number is lower risk 71 [facility] Start: 07-24-2022 Gender identity Identifies as female gender (finding) [facility] Start: 07-24-2022 Sexual orientation Heterosexual (fin ding) [facility] Clinical Notes 09-24-2021 to 06-06-2023 Cathi Stewart APRN.CNM - 05/15/2023 2:25 PM Ana Mccord RN - 04/07/2023 8:57 AM Ann Marie Lackey - 04/03/2023 12:34 PM EDTPatient InstructionsPatient InstructionsPatient Instructions Note Date & Type Note Facility 06-06-2023 Note HNO ID: [id number] Author: Cathi Stewart APRN.CNM Service: ? Author Type: Residential Gas Heat Technician Type: Progress Notes Filed: 06/06/2023 9:13 AM Note Text: Alisa presents today for IUD insertion for contraception. Patient's last menstrual period was 07/05/2022 (approximate). GC/chlamydia: Not done: no risk factors and/or patient declines screening test: negative Side effects including irregular bleeding were discussed with the patient. The patient understands that it should be removed in 8 years or sooner if the patient desires a . IUD source: office provided IUD lot #: [id number] Exp date: 05/15/2025 UNIVERSAL PROTOCOL / SAFETY CHECKLIST Procedure to be Performed: Mirena IUD Sign In: A Moment of CARE was completed. Personnel directly involved with the procedure wore the appropriate PPE (Personal Protective Equipment). Patient/Surrogate Stated/Verified: PATIENT VERIFIED(optional for EMERGENT procedures): Patient name, Date of , Relevant allergies, and The intended procedure Time Out Communication: Intended patient and procedure match the source documents. Consent documented and matches the intended procedure. Sign Out: SIGN OUT (optional for EMERGENT procedures): No specimen collected. The cervix was prepped with betadine. The uterus sounded to 8 cm and the uterus is Retroverted.. Using sterile technique, the Mirena IUD was inserted without difficulty and the string was cut to 1cm from the external os of the cervix. Patient tolerated procedure well. PLAN: Patient was advised to observe for signs and symptoms of infection including but not limited to fever, malodorous vaginal discharge and/or pain. The patient was told to check the string monthly for accurate placement. Bleeding expectations were reviewed. Follow up in one month. Cathi Stewart APRN.CNM [facility] 05-15-2023 Note HNO ID: [id number] Author: Cathi Stewart APRN.NAREN Service: ? Author Type: Residential Gas Heat Technician Type: Progress Notes Filed: 05/15/2023 2:50 PM Note Text: Compliance Manager offered: Patient declines. VISIT Alisa Carey is a 27 year old year old here for visit. Delivery Summary: c/s 04/06/2023 ROS/ Recovery: Feeding: Breast feeding- problems: None Menses since delivery: none Menstrual pattern prior to : Regular periods [place] since delivery: Resumed Depression: denies symptoms of depression. OB Depression and Anxiety Screening- This Encounter (since 05/14/2023) Over the past 2 weeks have you felt down, depressed, or hopeless? Negative Over the past two weeks, have you felt little interest or pleasure in doing things?? 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 Anemia ASCUS with positive high risk HPV cervical 2018 PCOS (polycystic ovarian syndrome) PAST SURGICAL HISTORY Procedure Laterality Date DELIVERY ONLY 04/06/2023 [facility] PAST SURGICAL HISTORY OF wisdom teeth FAMILY HISTORY Problem Relation Age of Onset Hypertension Mother Breast Cancer Mother Hypertension Father Hypertension Sister No Known Problems Sister other (pcos) Sister Stroke Maternal Grandmother Diabetes Maternal Grandfather Social History Tobacco Use Smoking status: Never Smokeless tobacco: Never Vaping Use Vaping Use: Former Quit date: 08/05/2022 Substances: Nicotine Substance Use Topics Alcohol use: Not Currently Comment: Socially Drug use: No PHYSICAL EXAMINATION: BP 100/68 Temp 97.5 Wt 138 lb 6.4 oz (62.8kg) LMP 07/05/2022 GENERAL: pleasant, female in no apparent distress HEENT: Normocephalic, atraumatic, mucus membranes moist, and no lesions NECK: Supple and full range of motion DERMATOLOGY: Normal and without lesions BREAST: soft, non-tender, symmetric, no dominant mass, normal nipple-areolar complex, no lymphadenopathy, and no nipple discharge CHEST: Normal inspiratory effort ABDOMEN: soft, non-tender, and no masses. INCISION: No incisional redness, swelling, or drainage PELVIC: external genitalia normal, normal Bartholin's glands, urethra, Grawn's glands, no vulvar lesions, good vaginal support, physiologic discharge present, normal appearing perineal body and perianal region BIMANUAL: uterus normal size, shape and consistency, no adnexal masses, non-tender, and no cervical motion tenderness NEURO: alert and oriented x3,exam grossly non-focal EXTREMITIES: normal ASSESSMENT AND PLAN: 27 year old status post CS with normal course. Contraception plan: IUD - Mirena Follow up: RTC for insertion of IUD Cathi Stewart APRN.CNM [facility] 05-15-2023 History of Presen t illness Narrative Compliance Manager offered: Patient declines. VISIT Alisa Carey is a 27 year old year old here for visit. Delivery Summary: c/s 04/06/2023 ROS/ Recovery: Feeding: Breast feeding- problems: None Menses since delivery: none Menstrual pattern prior to : Regular periods [place] since delivery: Resumed Depression: denies symptoms of depression. OB Depression and Anxiety Screening- This Encounter (since 05/14/2023) Over the past 2 weeks have you felt down, depressed, or hopeless? Negative Over the past two weeks, have you felt little interest or pleasure in doing things? 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 Anemia ASCUS with positive high risk HPV cervical 2018 PCOS (polycystic ovarian syndrome) PAST SURGICAL HISTORY Procedure Laterality Date DELIVERY ONLY 04/06/2023 [facility] PAST SURGICAL HISTORY OF wisdom teeth FAMILY HISTORY Problem Relation Age of Onset Hypertension Mother Breast Cancer Mother Hypertension Father Hypertension Sister No Known Problems Sister other (pcos) Sister Stroke Maternal Grandmother Diabetes Maternal Grandfather Social History Tobacco Use Smoking status: Never Smokeless tobacco: Never Vaping Use Vaping Use: Former Quit date: 08/05/2022 Substances: Nicotine Substance Use Topics Alcohol use: Not Currently Comment: Socially Drug use: No PHYSICAL EXAMINATION: BP 100/68 Temp 97.5 Wt 138 lb 6.4 oz (62.8kg) LMP 07/05/2022 GENERAL: pleasant, female in no apparent distress HEENT: Normocephalic, atraumatic, mucus membranes moist, and no lesions NECK: Supple and full range of motion DERMATOLOGY: Normal and without lesions BREAST: soft, non-tender, symmetric, no dominant mass, normal nipple-areolar complex, no lymphadenopathy, and no nipple discharge CHEST: Normal inspiratory effort ABDOMEN: soft, non-tender, and no masses. INCISION: No incisional redness, swelling, or drainage PELVIC: external genitalia normal, normal Bartholin's glands, urethra, Grawn's glands, no vulvar lesions, good vaginal support, physiologic discharge present, normal appearing perineal body and perianal region BIMANUAL: uterus normal size, shape and consistency, no adnexal masses, non-tender, and no cervical motion tenderness NEURO: alert and oriented x3,exam grossly non-focal EXTREMITIES: normal ASSESSMENT AND PLAN: 27 year old status post CS with normal course. Contraception plan: IUD - Mirena Follow up: RTC for insertion of IUD Cathi Stewart APRN.CNM documented in this encounter [facility] 04-17-2023 Note HNO ID: [id number] Author: Cathi Stewart APRN.CNM Service: ? Author Type: Residential Gas Heat Technician Type: Progress Notes Filed: 04/17/2023 9:44 AM Note Text: EARLY VISIT Alisa Carey is a 27 year old here for 2 week visit. Delivery Summary: C/S by DM on 04/06/2023 ROS: General: Denies any fever or chills Hypertension Screening: Headache? No. Visual Changes? No Epigastric Pain? No Increased Swelling? No Taking any BP medications at home? No If applicable, monitoring BP at home? (If Yes, include results) NA Mood: normal Depression: denies symptoms of depression. OB Depression and Anxiety Screening- This Encounter (since 04/16/2023) Over the past 2 weeks have you felt down, depressed, or hopeless? Negative Over the past two weeks, have you felt little interest or pleasure in doing things?? Negative Feeling nervous, anxious or on edge 1-Several days Not being able to stop or control worrying 0-Not al all Anxiety Pre-Screening Total (If >/= 3 additional questions will be reviewed) 1 Feeding: Breast feeding problems: None Bladder: No dysuria, gross hematuria, urinary frequency, urinary urgency, or incontinence Bowel symptoms: Negative for abdominal discomfort, blood in stools or black stools Abdomen: N/A Bleeding: light flow Bottom and Perineum: No issues Sleep: no sleep concerns, feels rested [place] since delivery: Not resumed Emotional support: Yes Exercise: N/A Other issues: None PHYSICAL EXAMINATION: BP 120/72 Wt 146 lb (66.2 kg) LMP 07/05/2022 (Approximate) Yes BMI 31.59 kg/m? General: pleasant,female in no apparent distress, AANDO x 3. Skin warm and intact. Breast: Deferred Abdomen: Deferred /Incision: No incisional redness, swelling, or drainage Dressing removed by patient at 5 days. Incision viewed with mirror. Pelvic: Deferred Bimanual: Deferred ASSESSMENT AND PLAN: 27 year old status post CS with normal course. Contraception plan: none. Unsure if interested in IUD replacement. Will decide by 6 week visit. Reinforced 6-week pelvic rest. Encouraged condom usage should patient deviate. Education: resources provided - see MA/RN note Follow up: Return to Clinic for 6 week visit and as needed Cathi Stewart APRN.NAREN [facility] 04-07-2023 Note HNO ID: [id number] Author: Ana Deluca RN Service: ? Author Type: ? Type: Progress Notes Filed: 04/07/2023 9:39 AM Note Text: Patient delivered via by Dr. Lindquist on 04/06/23 at [facility]. See OB history. Ana Deluca RN [facility] 04-07-2023 History of Presen t illness Narrative Patient delivered via by Dr. Lindquist on 04/06/23 at [facility]. See OB history. Ana Deluca RN documented in this encounter [facility] 04-03-2023 Note HNO ID: [id number] Author: Ann Marie Leal Service: ? Author Type: ? Type: Progress Notes Filed: 04/03/2023 12:39 PM Note Text: POPULATION HEALTH NAVIGATION OUTREACH Action/FYI Spoke to patient added regulatory coordinator to OB provider field Patient Identified by Name and : YES, via phone Outreach Outcome/Action Spoke to patient / parent / legal guardian: No action required (information or reminder only) Did you use a PCP flex slot to schedule this appointment? N/A Reason for Outreach Payer: Payor: [facility] / Plan: [facility] CHOICE PLUS / Product Type: HMO / Care Gap Reviewed:: N/A Reminder: Reminder note to check Health Maintenance for items below Health Maintenance items due: HPV Vaccine(1 - 2-dose series) Never done Hepatitis B Vaccine(3 of 3 - Hep B Twinrix 3-dose series) due on 09/14/2017 Depression Assessment Never done Influenza Vaccine(1) Never done Covid-19 Vaccine( season) due on 02/14/2023 Navigation Signature: Ann Marie Leal April 03, 2023 12:36 PM [facility] 04-03-2023 Note Patient Outreach (NE TNAV) ALISA CAREY ([id number]) 1995 F Date Time Provider Department 04/03/23 ANN MARIE LEAL During your visit today, we recorded the following information about you: Ann Marie Leal 04/03/2023 12:39 PM Signed POPULATION HEALTH NAVIGATION OUTREACH Action/ Spoke to patient added regulatory coordinator to OB provider field Patient Identified by Name and : YES, via phone Outreach Outcome/Action Spoke to patient / parent / legal guardian: No action required (information or reminder only) Did you use a PCP flex slot to schedule this appointment? N/A Reason for Outreach Payer: Payor: [facility] / Plan: [facility] CHOICE PLUS / Product Type: HMO / Care Gap Reviewed:: N/A Reminder: Reminder note to check Health Maintenance for items below Health Maintenance items due: HPV Vaccine(1 - 2-dose series) Never done Hepatitis B Vaccine(3 of 3 - Hep B Twinrix 3-dose series) due on 09/14/2017 Depression Assessment Never done Influenza Vaccine(1) Never done Covid-19 Vaccine( season) due on 02/14/2023 Navigation Signature: Ann Marie Leal April 03, 2023 12:36 PM Allergies As of Date: 04/03/2023 (No Known Allergies) Date Reviewed: 04/01/2023 Reviewed by: Vega Drew Cma - Fully Assessed Reason for Visit: Population Health Navigation Outreach [3910] Cmt: Ob/peds Prescriptions as of 04/03/2023 - [id number] fum-folic ac-om3 (ONE A DAY WOMEN'S DHA) 28 mg iron- 800 mcg cmpk Take by mouth. W/ iron - famotidine (PEPCID) 20 mg tablet Take 1 tablet by mouth twice daily. - ondansetron (ZOFRAN) 4 mg tablet Take 1 tablet by mouth every 8 hours as needed. - aspirin, enteric coated (ASPIRIN, ENTERIC COATED) 81 mg EC tablet Take 1 tablet by mouth once daily. - Ferrous Sulfate (SLOW FE) 142 mg (45 mg iron) TbER Take 3 tablets by mouth once daily. - vits62/FA/om3/dha/epa ( GUMMY ORAL) Take by mouth. Problem List As Of Date 04/03/2023 Noted Resolved History of nicotine vaping [Z87.891] 08/21/2022 Family history of congenital heart defect [Z82.*08/21/2022 Patient request for diagnostic testing [Z01.89] 08/21/2022 01/17/2023 Obesity in [O99.210] 09/03/2022 Rh negative state in antepartum period [O26.899*09/06/2022 Abnormal glucose complicating [O99.81*01/17/2023 Antepartum anemia complicating in thi*01/17/2023 Encounter Status:Closed by ANN MARIE LEAL on 04/03/23 [facility] 04-03-2023 History of Presen t illness Narrative POPULATION HEALTH NAVIGATION OUTREACH Action/FYI Spoke to patient added regulatory coordinator to OB provider field Patient Identified by Name and : YES, via phone Outreach Outcome/Action Spoke to patient / parent / legal guardian: No action required (information or reminder only) Did you use a PCP flex slot to schedule this appointment? N/A Reason for Outreach [place] Payer: Payor: [facility] / Plan: [facility] CHOICE PLUS / Product Type: HMO / Care Gap Reviewed:: N/A Reminder: Reminder note to check Health Maintenance for items below Health Maintenance items due: HPV Vaccine(1 - 2-dose series) Never done Hepatitis B Vaccine(3 of 3 - Hep B Twinrix 3-dose series) due on 09/14/2017 Depression Assessment Never done Influenza Vaccine(1) Never done Covid-19 Vaccine(3 - season) due on 02/14/2023 Navigation Signature: Ann Marie Leal April 03, 2023 12:36 PM documented in this encounter [facility] 04-01-2023 Miscellaneous Notes Formattin g of this note might be different from the original. ANA-S: Alisa Carey is a 27 year old female who presents at 38w4d with JERONIMO:04/11/2023, by Last Menstrual Period for a routine visit. Denies headache, visual changes, chest pain, shortness of breath, vaginal bleeding, leakage of fluid, or dysuria. Feeling well, no complaints. O: See flow sheet Gen: No apparent distress Abd: Gravid, nontender ASSESSMENT/PLAN: 1. 38 weeks gestation of 2. Encounter for supervision of normal first in third trimester P: 1) Labor instructions reviewed and when to call 2) RTO in 1 week 3) Growth US scheduled, S>D and last growth US at 34 weeks Jose Manuel Russell APRN.CNM documented in this encounter [facility] 04-01-2023 Instructions Vega Drew Cma - 04/01/2023 2:32 PM EDT SEQUENTIAL SCREENINGS The [facility] offers sequential screenings for women who are interested in screenings for chromosomal abnormalities and certain defects during a . The sequential screen combines ultrasound and blood tests to determine the risk of chromosomal abnormalities, including Down's Syndrome (Trisomy 21) and Trisomy 18, as well as open neural tube defects including spina bifida. Ultrasound examination is performed between 11 weeks and 13 weeks gestational age. Blood tests are drawn after the ultrasound and again later in the between 15 and 21 weeks gestational age. Please let your physician know if you are interested in this testing. It will require an appointment with our plastic eye technician. This is not an ultrasound performed by a physician in our office during a routine visit. SIGNS AND SYMPTOMS OF LABOR 1. Contractions every 10 minutes or more often 2. Clear, pink, or brownish fluid (water) leaking from vagina 3. Feeling that baby is pushing down, pressure 4. Low, dull backache 5. Cramps that feel like a period 6. Cramps with or without diarrhea If you notice any of the above symptoms, contact our office at [phone] and ask to speak with a nurse. After hours, you can call [employer] registry at [phone] OR call [facility] at [phone] and ask to have the doctor wilton weaver paged. If you consider this an emergency, dial 4-4-8 or go to your nearest emergency department. NEED HELP? Are you dealing with a violent or abusive relationship? Are you a victim of rape or sexual assult? Call [facility] ([place]) 24 hour Crisis Hotline: 358.468.8916 or 407-911-6213. MANUAL Your Guide to a Healthy manual is now on-line. Visit [email or web address] to download your free copy documented in this encounter [facility] 03-28-2023 Miscellaneous Notes Addended by: DIANE CONTRERAS on: 03/28/2023 04:42 PM Modules accepted: Orders RR- VB No. LOF No. CTXS No. Movement: present. Other c/o: No. Medication list reviewed. Physical Exam See Flow Sheet Abd: soft, nontender, gravid Ext: edema: Trace A/P 38w0d Estimated Date of Delivery: 04/11/23 emanuel counts growth scan short stature and S>D heartburn, d/w her symptomatic measures Diane Contreras M.D. documented in this encounter [facility] 03-28-2023 Instructions Mary Jane Moon Ma - 03/28/2023 4:07 PM EDT SEQUENTIAL SCREENINGS The [facility] offers sequential screenings for women who are interested in screenings for chromosomal abnormalities and certain defects during a . The sequential screen combines ultrasound and blood tests to determine the risk of chromosomal abnormalities, including Down's Syndrome (Trisomy 21) and Trisomy 18, as well as open neural tube defects including spina bifida. Ultrasound examination is performed between 11 weeks and 13 weeks gestational age. Blood tests are drawn after the ultrasound and again later in the between 15 and 21 weeks gestational age. Please let your physician know if you are interested in this testing. It will require an appointment with our plastic eye technician. This is not an ultrasound performed by a physician in our office during a routine visit. SIGNS AND SYMPTOMS OF LABOR 1. Contractions every 10 minutes or more often 2. Clear, pink, or brownish fluid (water) leaking from vagina 3. Feeling that baby is pushing down, pressure 4. Low, dull backache 5. Cramps that feel like a period 6. Cramps with or without diarrhea If you notice any of the above symptoms, contact our office at [phone] and ask to speak with a nurse. After hours, you can call doctors registry at [phone] OR call [facility] at [phone] and ask to have the doctor wilton weaver paged. If you consider this an emergency, dial 9--1 or go to your nearest emergency department. NEED HELP? Are you dealing with a violent or abusive relationship? Are you a victim of rape or sexual assult? Call [facility] ([place]) 24 hour Crisis Hotline: 232.776.9625 or 934-852-2440. MANUAL Your Guide to a Healthy manual is now on-line. Visit [email or web address] to download your free copy documented in this encounter [facility] 03-21-2023 Miscellaneous Notes Formattin g of this note might be different from the original. ANA-S: Alisa Carey is a 27 year old female who presents at 37w0d with JERONIMO:04/11/2023, by Last Menstrual Period for a routine visit. Good FM. Denies headache, visual changes, chest pain, shortness of breath, vaginal bleeding, leakage of fluid, or dysuria. Feeling well, no complaints. No signs of labor, irregular contractions. O: See flow sheet Gen: No apparent distress Abd: Gravid, nontender S=D, 2 lbs, cephalic, confirmed by limited bedside US. ASSESSMENT/PLAN: 1. 37 weeks gestation of 2. Encounter for supervision of normal first in third trimester P: 1) Labor precautions reviewed and when to call 2) RTO in 1 week 3) Growth US completed, 88th percentile. Discussed IOL vs expectant management. At this time, patient would like to await spontaneous labor. 4) Did not complete CBE or . Would like epidural during labor. Planning to breastfeed. Jose Manuel Russell APRN.CNM documented in this encounter [facility] 03-21-2023 Instructions Vega Drew Cma - 03/21/2023 11:13 AM EDT SEQUENTIAL SCREENINGS The [facility] offers sequential screenings for women who are interested in screenings for chromosomal abnormalities and certain defects during a . The sequential screen combines ultrasound and blood tests to determine the risk of chromosomal abnormalities, including Down's Syndrome (Trisomy 21) and Trisomy 18, as well as open neural tube defects including spina bifida. Ultrasound examination is performed between 11 weeks and 13 weeks gestational age. Blood tests are drawn after the ultrasound and again later in the between 15 and 21 weeks gestational age. Please let your physician know if you are interested in this testing. It will require an appointment with our plastic eye technician. This is not an ultrasound performed by a physician in our office during a routine visit. SIGNS AND SYMPTOMS OF LABOR 1. Contractions every 10 minutes or more often 2. Clear, pink, or brownish fluid (water) leaking from vagina 3. Feeling that baby is pushing down, pressure 4. Low, dull backache 5. Cramps that feel like a period 6. Cramps with or without diarrhea If you notice any of the above symptoms, contact our office at [phone] and ask to speak with a nurse. After hours, you can call doctors registry at [phone] OR call [facility] at [phone] and ask to have the doctor wilton weaver paged. If you consider this an emergency, dial or go to your nearest emergency department. NEED HELP? Are you dealing with a violent or abusive relationship? Are you a victim of rape or sexual assult? Call [facility] ([place]) 24 hour Crisis Hotline: 493.541.3612 or 170-893-8063. MANUAL Your Guide to a Healthy manual is now on-line. Visit [email or web address] to download your free copy documented in this encounter [facility] 02-21-2023 Miscellaneous Notes Formattin g of this note might be different from the original. FMLA completed, faxed to employer, scanned into EMR and filed in Nurses station. Bri Roa LPN FMLA completed and placed on providers desk for signature. Bri Roa LPN documented in this encounter [facility] 02-14-2023 Note HNO ID: [id number] Author: Won Devlin MD Service: ? Author Type: Physician Type: Progress Notes Filed: 02/14/2023 12:46 PM Note Text: NST SUMMARY PROVIDER ASSESSMENT AND INTERPRETATION Alisa Carey is a 27 year old female, , who is at 32w0d with an JERONIMO of 04/11/2023, by Last Menstrual Period dating method. Indications for NST: Decreased Movement Baseline: 135 Variability: Moderate Accelerations: Present 15 X 15 Decelerations: None Contractions: TOCO: None Interpretation: Reactive SIGNATURE: Won Devlin MD [facility] 02-14-2023 History of Presen t illness Narrative NST SUMMARY PROVIDER ASSESSMENT AND INTERPRETATION Alisa Carey is a 27 year old female, , who is at 32w0d with an JERONIMO of 04/11/2023, by Last Menstrual Period dating method. Indications for NST: Decreased Movement Baseline: 135 Variability: Moderate Accelerations: Present 15 X 15 Decelerations: None Contractions: TOCO: None Interpretation: Reactive SIGNATURE: Won Devlin MD documented in this encounter [facility] 02-14-2023 Instructions s Ayana Kruse 02/14/2023 11:35 AM EDT SEQUENTIAL SCREENINGS The [facility] offers sequential screenings for women who are interested in screenings for chromosomal abnormalities and certain defects during a . The sequential screen combines ultrasound and blood tests to determine the risk of chromosomal abnormalities, including Down's Syndrome (Trisomy 21) and Trisomy 18, as well as open neural tube defects including spina bifida. Ultrasound examination is performed between 11 weeks and 13 weeks gestational age. Blood tests are drawn after the ultrasound and again later in the between 15 and 21 weeks gestational age. Please let your physician know if you are interested in this testing. It will require an appointment with our plastic eye technician. This is not an ultrasound performed by a physician in our office during a routine visit. SIGNS AND SYMPTOMS OF LABOR 1. Contractions every 10 minutes or more often 2. Clear, pink, or brownish fluid (water) leaking from vagina 3. Feeling that baby is pushing down, pressure 4. Low, dull backache 5. Cramps that feel like a period 6. Cramps with or without diarrhea If you notice any of the above symptoms, contact our office at [phone] and ask to speak with a nurse. After hours, you can call doctors registry at [phone] OR call [facility] at [phone] and ask to have the doctor wilton weaver paged. If you consider this an emergency, dial 9-5-3 or go to your nearest emergency department. NEED HELP? Are you dealing with a violent or abusive relationship? Are you a victim of rape or sexual assult? Call [facility] ([place]) 24 hour Crisis Hotline: 197.839.7778 or 439-693-7660. MANUAL Your Guide to a Healthy manual is now on-line. Visit [email or web address] to download your free copy documented in this encounter [facility] 02-11-2023 Miscellaneous Notes Formattin g of this note might be different from the original. DM- Pt doing well today. Denies Vaginal Bleeding, Leaking fluid, or contractions. Pt reports good movement. Growth us 2-4 weeks for S>D. Continue PO iron and ASA. RTO 2 wks. Kick counts reviewed. Julian Pineda MD documented in this encounter [facility] 02-11-2023 Instructions Jocelin Andujar Ma - 02/11/2023 4:09 PM EDT SEQUENTIAL SCREENINGS The [facility] offers sequential screenings for women who are interested in screenings for chromosomal abnormalities and certain defects during a . The sequential screen combines ultrasound and blood tests to determine the risk of chromosomal abnormalities, including Down's Syndrome (Trisomy 21) and Trisomy 18, as well as open neural tube defects including spina bifida. Ultrasound examination is performed between 11 weeks and 13 weeks gestational age. Blood tests are drawn after the ultrasound and again later in the between 15 and 21 weeks gestational age. Please let your physician know if you are interested in this testing. It will require an appointment with our plastic eye technician. This is not an ultrasound performed by a physician in our office during a routine visit. SIGNS AND SYMPTOMS OF LABOR 1. Contractions every 10 minutes or more often 2. Clear, pink, or brownish fluid (water) leaking from vagina 3. Feeling that baby is pushing down, pressure 4. Low, dull backache 5. Cramps that feel like a period 6. Cramps with or without diarrhea If you notice any of the above symptoms, contact our office at [phone] and ask to speak with a nurse. After hours, you can call doctors registry at [phone] OR call [facility] at [phone] and ask to have the doctor wilton weaver paged. If you consider this an emergency, dial 9-4 or go to your nearest emergency department. NEED HELP? Are you dealing with a violent or abusive relationship? Are you a victim of rape or sexual assult? Call [facility] ([place]) 24 hour Crisis Hotline: 379.814.2268 or 981-184-3645. MANUAL Your Guide to a Healthy manual is now on-line. Visit [email or web address] to download your free copy documented in this encounter [facility] 01-28-2023 Miscellaneous Notes Formattin g of this note might be different from the original. Faxed Received breast pump order from [facility]. To DM to sign. Evelyn Miller RN documented in this encounter [facility] 01-28-2023 Miscellaneous Notes Formattin g of this note might be different from the original. DM- Pt doing well today. Denies Vaginal Bleeding, Leaking fluid, or contractions. Pt reports good movement. Measuring slightly ahead today - will monitor FH, consider Growth us later date. RTO 2 wks. Kick counts reviewed. 28 week labs reviewed. Continue ASA and Iron. Passed 3hrgtt. Julian Pineda MD documented in this encounter [facility] 01-28-2023 Instructions Jocelin Andujar Ma - 01/28/2023 2:19 PM EDT SEQUENTIAL SCREENINGS The [facility] offers sequential screenings for women who are interested in screenings for chromosomal abnormalities and certain defects during a . The sequential screen combines ultrasound and blood tests to determine the risk of chromosomal abnormalities, including Down's Syndrome (Trisomy 21) and Trisomy 18, as well as open neural tube defects including spina bifida. Ultrasound examination is performed between 11 weeks and 13 weeks gestational age. Blood tests are drawn after the ultrasound and again later in the between 15 and 21 weeks gestational age. Please let your physician know if you are interested in this testing. It will require an appointment with our plastic eye technician. This is not an ultrasound performed by a physician in our office during a routine visit. SIGNS AND SYMPTOMS OF LABOR 1. Contractions every 10 minutes or more often 2. Clear, pink, or brownish fluid (water) leaking from vagina 3. Feeling that baby is pushing down, pressure 4. Low, dull backache 5. Cramps that feel like a period 6. Cramps with or without diarrhea If you notice any of the above symptoms, contact our office at [phone] and ask to speak with a nurse. After hours, you can call doctors registry at [phone] OR call [facility] at [phone] and ask to have the doctor wilton weaver paged. If you consider this an emergency, dial 9--3 or go to your nearest emergency department. NEED HELP? Are you dealing with a violent or abusive relationship? Are you a victim of rape or sexual assult? Call [facility] ([place]) 24 hour Crisis Hotline: 938.633.2672 or 473-506-9292. MANUAL Your Guide to a Healthy manual is now on-line. Visit [email or web address] to download your free copy documented in this encounter [facility] 01-17-2023 Miscellaneous Notes Formattin g of this note might be different from the original. Patient notified. Lab appointment scheduled. Evelyn Miller RN Needs 3 hr glucose. Order filed. Gaye Gilliland APRN.SCIENCE TUTOR documented in this encounter [facility] 01-16-2023 Note HNO ID: [id number] Author: Erica Awan MA Service: ? Author Type: Shredder Picker Type: Progress Notes Filed: 01/21/2023 9:38 PM Note Text: Patient identified by name and date of . Alisa Carey presents today for a vaccination of Tdap. Patient denies an allergy to latex: yes Patient denies a severe (life-threatening) allergy to a previous dose of Tdap, DTP, DTaP, DT or Td vaccine. Yes Patient denies history of epilepsy or neurological problems: Yes Patient is afebrile and denies being moderately or severely ill: Yes Patient denies history of Guillain-Briscoe Syndrome (a severe paralytic illness): Yes Tdap Adacel injection was given without incident. See immunizations for details of immunizations administered today. VIS sheet provided: Yes Provider Sumit Elias DO was present in office at time of injection. Erica Awan MA [facility] 01-16-2023 Nurse Note The patient is here for an injection of Rhogam. Dose: 300mcg Amount wasted: none. Route: Intramuscular Site: left upper quadrant gluteus Primary Care Coordinator: CSL Behring See MAR The date due for the next injection is n/a Evelyn Miller RN documented in this encounter [facility] 01-16-2023 Miscellaneous Notes Formattin g of this note might be different from the original. SW- Concerns regarding darker stools. Some constipation. No BRB. No ctx, vb, lof. Good FM. Discussed stool color change likely secondary to starting iron supplement. Reviewed reasons to call and see GI. Tdap and Rhogam today. 28 wk labs. [facility] signed. RTO 2 wks. Sumit Elias DO documented in this encounter [facility] 01-16-2023 History of Presen t illness Narrative Patient identified by name and date of . Alisa Carey presents today for a vaccination of Tdap. Patient denies an allergy to latex: yes Patient denies a severe (life-threatening) allergy to a previous dose of Tdap, DTP, DTaP, DT or Td vaccine. Yes Patient denies history of epilepsy or neurological problems: Yes Patient is afebrile and denies being moderately or severely ill: Yes Patient denies history of Guillain-Briscoe Syndrome (a severe paralytic illness): Yes Tdap Adacel injection was given without incident. See immunizations for details of immunizations administered today. VIS sheet provided: Yes Provider Sumit Elias DO was present in office at time of injection. Erica Awan MA documented in this encounter [facility] 01-16-2023 Instructions Erica Awan MA - 01/16/2023 3:24 PM EDT SEQUENTIAL SCREENINGS The [facility] offers sequential screenings for women who are interested in screenings for chromosomal abnormalities and certain defects during a . The sequential screen combines ultrasound and blood tests to determine the risk of chromosomal abnormalities, including Down's Syndrome (Trisomy 21) and Trisomy 18, as well as open neural tube defects including spina bifida. Ultrasound examination is performed between 11 weeks and 13 weeks gestational age. Blood tests are drawn after the ultrasound and again later in the between 15 and 21 weeks gestational age. Please let your physician know if you are interested in this testing. It will require an appointment with our plastic eye technician. This is not an ultrasound performed by a physician in our office during a routine visit. SIGNS AND SYMPTOMS OF LABOR 1. Contractions every 10 minutes or more often 2. Clear, pink, or brownish fluid (water) leaking from vagina 3. Feeling that baby is pushing down, pressure 4. Low, dull backache 5. Cramps that feel like a period 6. Cramps with or without diarrhea If you notice any of the above symptoms, contact our office at [phone] and ask to speak with a nurse. After hours, you can call doctors registry at [phone] OR call [facility] at [phone] and ask to have the doctor wilton weaver paged. If you consider this an emergency, dial 9--6 or go to your nearest emergency department. NEED HELP? Are you dealing with a violent or abusive relationship? Are you a victim of rape or sexual assult? Call [facility] ([place]) 24 hour Crisis Hotline: 987.369.2972 or 689-015-5350. MANUAL Your Guide to a Healthy manual is now on-line. Visit [email or web address] to download your free copy documented in this encounter [facility] 12-19-2022 Miscellaneous Notes Formattin g of this note might be different from the original. DM- Pt doing well today. Denies Vaginal Bleeding, Leaking fluid, or contractions. Pt reports good movement. Anatomy us reviewed. RTO 4 weeks. 28 week labs ordered. Julian Pineda MD documented in this encounter [facility] 12-19-2022 Instructions Jocelin Andujar Ma - 12/19/2022 4:04 PM EDT SEQUENTIAL SCREENINGS The [facility] offers sequential screenings for women who are interested in screenings for chromosomal abnormalities and certain defects during a . The sequential screen combines ultrasound and blood tests to determine the risk of chromosomal abnormalities, including Down's Syndrome (Trisomy 21) and Trisomy 18, as well as open neural tube defects including spina bifida. Ultrasound examination is performed between 11 weeks and 13 weeks gestational age. Blood tests are drawn after the ultrasound and again later in the between 15 and 21 weeks gestational age. Please let your physician know if you are interested in this testing. It will require an appointment with our plastic eye technician. This is not an ultrasound performed by a physician in our office during a routine visit. SIGNS AND SYMPTOMS OF LABOR 1. Contractions every 10 minutes or more often 2. Clear, pink, or brownish fluid (water) leaking from vagina 3. Feeling that baby is pushing down, pressure 4. Low, dull backache 5. Cramps that feel like a period 6. Cramps with or without diarrhea If you notice any of the above symptoms, contact our office at [phone] and ask to speak with a nurse. After hours, you can call doctors registry at [phone] OR call [facility] at [phone] and ask to have the doctor wilton weaver paged. If you consider this an emergency, dial 2-3-1 or go to your nearest emergency department. NEED HELP? Are you dealing with a violent or abusive relationship? Are you a victim of rape or sexual assult? Call [facility] ([place]) 24 hour Crisis Hotline: 213.737.4126 or 024-510-7288. MANUAL Your Guide to a Healthy manual is now on-line. Visit [email or web address] to download your free copy documented in this encounter [facility] 12-10-2022 Miscellaneous Notes Formattin g of this note might be different from the original. Pt brought form to office to be filled out re: appropriate medications during dental procedure. Form completed and faxed to Dental office. Bri Roa LPN documented in this encounter [facility] 10-30-2022 Miscellaneous Notes Formattin g of this note might be different from the original. DM- Pt doing well today. Denies Vaginal Bleeding, Leaking fluid, or cramping. Pt reports still with significant nausea and vomiting once per day. Lots of food aversions. Requesting zofran. Anatomy us ordered. Continue asa. AFP ordered. RTO 4 wks. Julian Pineda MD documented in this encounter [facility] 10-30-2022 Instructions Jocelin Andujar Ma - 10/30/2022 4:11 PM EDT SEQUENTIAL SCREENINGS The [facility] offers sequential screenings for women who are interested in screenings for chromosomal abnormalities and certain defects during a . The sequential screen combines ultrasound and blood tests to determine the risk of chromosomal abnormalities, including Down's Syndrome (Trisomy 21) and Trisomy 18, as well as open neural tube defects including spina bifida. Ultrasound examination is performed between 11 weeks and 13 weeks gestational age. Blood tests are drawn after the ultrasound and again later in the between 15 and 21 weeks gestational age. Please let your physician know if you are interested in this testing. It will require an appointment with our plastic eye technician. This is not an ultrasound performed by a physician in our office during a routine visit. SIGNS AND SYMPTOMS OF LABOR 1. Contractions every 10 minutes or more often 2. Clear, pink, or brownish fluid (water) leaking from vagina 3. Feeling that baby is pushing down, pressure 4. Low, dull backache 5. Cramps that feel like a period 6. Cramps with or without diarrhea If you notice any of the above symptoms, contact our office at [phone] and ask to speak with a nurse. After hours, you can call doctors registry at [phone] OR call [facility] at [phone] and ask to have the doctor wilton weaver paged. If you consider this an emergency, dial 91-2 or go to your nearest emergency department. NEED HELP? Are you dealing with a violent or abusive relationship? Are you a victim of rape or sexual assult? Call [facility] ([facility] 24 hour Crisis Hotline: 327.294.5378 or 426-045-3346. MANUAL Your Guide to a Healthy manual is now on-line. Visit [email or web address] to download your free copy documented in this encounter [facility] 10-02-2022 Note HNO ID: [id number] Author: Jackie Freedman MD Service: ? Author Type: Physician Type: Progress Notes Filed: 10/02/2022 11:53 AM Note Text: Patient here for ultrasound. See ultrasound report for details. 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 Author Type: ? Type: Progress Notes Filed: 10/01/2022 4:26 PM Note Text: Patient here for First Trimester Screening. See ultrasound report for details. Options for genetic screening and diagnosis discussed with the patient. Patient opts for first trimester screening and the sequential screening protocol. Limitations of screening tests discussed with the patient. Won Delvin MD [facility] 09-17-2022 Note HNO ID: [id number] Author: Julian Lindquist MD Service: ? Author Type: Physician Type: Progress Notes Filed: 09/17/2022 8:38 AM Note Text: Notify patient of negative Horizon testing. [facility] 09-17-2022 Miscellaneous Notes Formattin g of this note might be different from the original. Patient notified and voiced understanding. Funmilayo Patino RN Notify patient of negative horizon testing. documented in this encounter [facility] 09-16-2022 Note HNO ID: [id number] Author: Evelyn Miller RN Service: ? Author Type: ? Type: Progress Notes Filed: 09/16/2022 1:10 PM Note Text: Horizon Carrier Screening Results Scan on 09/16/2022 12:27 PM by External Provider: Genetics [facility] 09-16-2022 History of Presen t illness Narrative Horizon Carrier Screening Results Scan on 09/16/2022 12:27 PM by External Provider: Genetics documented in this encounter [facility] 09-03-2022 Note HNO ID: [id number] Author: Julian Lindquist MD Service: ? Author Type: Physician Type: Progress Notes Filed: 09/03/2022 12:05 PM Note Text: OB point of care ultrasound was performed. See imaging tab for details. Julian Pineda MD [facility] 09-03-2022 History of Presen t illness Narrative OB point of care ultrasound was performed. See imaging tab for details. Julian Pineda MD documented in this encounter [facility] 09-03-2022 Note HNO ID: [id number] Author: Julian Lindquist MD Service: ? Author Type: Physician Type: Progress Notes Filed: 09/03/2022 10:54 AM Note Text: INITIAL OB ASSESSMENT OB Provider: Julian Lindquist MD HPI: Alisa Carey is a 26 year old female here to establish Obstetrical Care. Patient's last menstrual period was 07/05/2022 (approximate). from OB Dating Form. Cycle length: 28 days Complaints: nausea and vomiting was unplanned but accepted. OB History T0 L0 SAB0 IAB0 Ectopic0 Multiple0 Live Births0 Prior : never History of 4th degree laceration: No Patient's Risk Screening for delivery: History of abnormal pap: No Prior treatment for cervical dysplasia: none. 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 No current facility-administered medications on file prior to visit. Review of Systems: GENERAL: Negative for: Fever or Chills HEENT: Negative for: Headache, Impaired Vision, Ringing in Ears, Nosebleeds NECK: Negative for: Swelling, Pain, Stiffness RESPIRATORY: Negative for: Cough, Shortness of breath, Wheezing GASTROINTESTINAL: Negative for: Heartburn, Constipation, Diarrhea, Blood in stool, Vomiting MUSCULOSKELETAL: Negative for: Muscle or joint pain, stiffness, Joint swelling NEUROLOGIC/PSYCHIATRIC: Negative for: Weakness, Paralysis, Numbness, Tingling, Tremor, Anxiety, Depression, Memory loss SKIN: Negative for: Rash, Itching GENITOURINARY: Negative for: vaginal itching, vaginal discharge, hematuria or dysuria PHYSICAL EXAM: BP 100/64 Ht 4' 9 (1.45m) Wt 153 lb (69.4kg) LMP 07/05/2022 BMI 33.10 kg/(m2). GENERAL: pleasant female in no apparent distress DERMATOLOGY: Normal, without lesions, non-icteric, and non-hirsute NECK: Supple, full range of motion, no adenopathy, and thyroid normal BREAST: soft, non-tender, symmetric, no dominant mass, normal nipple-areolar complex, no lymphadenopathy, and no nipple discharge ABDOMEN: soft, non-tender, and no masses NEURO: alert and oriented x3,exam grossly non-focal PELVIS: External genitalia normal without lesions. Perineal body intact. No vaginal lesions. Clinical Pelvimetry: not done Limited OB ultrasound exam: single intrauterine and positive cardiac activity OB Risk Screening: Completed, no positive findings documented. ASSESSMENT: 26 year old at 8.5 wks gestational age PLAN: 1) Patient oriented to practice. Discussed nutrition, folic acid supplementation, dietary guidelines, exercise, smoking, alcohol, caffeine, and drug use. Discussed routine OB labs including STD/HIV. Discussed aneuploidy screening options including serum screening and nuchal translucency. Horizon testing today 2) ASA reviewed- obesity and primiparous 3) NT and maternity 21 ordered. Follow up in 4 weeks or sooner prn. Julian Pineda MD [facility] 09-03-2022 Miscellaneous Notes Formattin g of this note might be different from the original. DM- new ob. NT ordered, ASA reviewed. Horizon testing and Mat 21 ordered. RTO 4 wks. Julian Pineda MD documented in this encounter [facility] 09-03-2022 History of Presen t illness Narrative INITIAL OB ASSESSMENT OB Provider: Julian Lindquist MD HPI: Alisa Carey is a 26 year old female here to establish Obstetrical Care. Patient's last menstrual period was 07/05/2022 (approximate). from OB Dating Form. Cycle length: 28 days Complaints: nausea and vomiting was unplanned but accepted. OB History T0 L0 SAB0 IAB0 Ectopic0 Multiple0 Live Births0 Prior : never History of 4th degree laceration: No Patient's Risk Screening for delivery: History of abnormal pap: No Prior treatment for cervical dysplasia: none. 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 No current facility-administered medications on file prior to visit. Review of Systems: GENERAL: Negative for: Fever or Chills HEENT: Negative for: Headache, Impaired Vision, Ringing in Ears, Nosebleeds NECK: Negative for: Swelling, Pain, Stiffness RESPIRATORY: Negative for: Cough, Shortness of breath, Wheezing GASTROINTESTINAL: Negative for: Heartburn, Constipation, Diarrhea, Blood in stool, Vomiting MUSCULOSKELETAL: Negative for: Muscle or joint pain, stiffness, Joint swelling NEUROLOGIC/PSYCHIATRIC: Negative for: Weakness, Paralysis, Numbness, Tingling, Tremor, Anxiety, Depression, Memory loss SKIN: Negative for: Rash, Itching GENITOURINARY: Negative for: vaginal itching, vaginal discharge, hematuria or dysuria PHYSICAL EXAM: BP 100/64 Ht 4' 9 (1.45m) Wt 153 lb (69.4kg) LMP 07/05/2022 BMI 33.10 kg/(m^2). GENERAL: pleasant female in no apparent distress DERMATOLOGY: Normal, without lesions, non-icteric, and non-hirsute NECK: Supple, full range of motion, no adenopathy, and thyroid normal BREAST: soft, non-tender, symmetric, no dominant mass, normal nipple-areolar complex, no lymphadenopathy, and no nipple discharge ABDOMEN: soft, non-tender, and no masses NEURO: alert and oriented x3,exam grossly non-focal PELVIS: External genitalia normal without lesions. Perineal body intact. No vaginal lesions. Clinical Pelvimetry: not done Limited OB ultrasound exam: single intrauterine and positive cardiac activity OB Risk Screening: Completed, no positive findings documented. ASSESSMENT: 26 year old at 8.5 wks gestational age PLAN: 1) Patient oriented to practice. Discussed nutrition, folic acid supplementation, dietary guidelines, exercise, smoking, alcohol, caffeine, and drug use. Discussed routine OB labs including STD/HIV. Discussed aneuploidy screening options including serum screening and nuchal translucency. Horizon testing today 2) ASA reviewed- obesity and primiparous 3) NT and maternity 21 ordered. Follow up in 4 weeks or sooner prn. Julian Pineda MD documented in this encounter [facility] 09-03-2022 Instructions Erica Awan MA - 09/03/2022 9:58 AM EDT Please select the following link to access the [facility] Your Guide to a Healthy . [email or web address] documented in this encounter [facility] documented as of this encounter (statuses as of 01/17/2023) [facility]03-08-2023 History of Past illness Narrative* Problem Noted Date Diagnosed Date Resolved Date Patient request for diagnostic testing 08/21/2022 01/17/2023 Overview: 08/21/2022 Patient desires aneuploidy screening. Contact information for [facility] given to patient to check on insurance coverage. Patient considering genetic carrier screening testing. Contact information for [employer] rep given to patient to check on insurance coverage.Agnes Saenz RN documented as of this encounter (statuses as of 01/22/2023) [facility]03-08-2023 History of Past illness Narrative* Problem Noted Date Diagnosed Date Resolved Date Patient request for diagnostic testing 08/21/2022 01/17/2023 Overview: 08/21/2022 Patient desires aneuploidy screening. Contact information for [facility] given to patient to check on insurance coverage. Patient considering genetic carrier screening testing. Contact information for [employer] rep given to patient to check on insurance coverage.Agnes Saenz RN documented as of this encounter (statuses as of 01/29/2023) [facility] History of Past illness Narrative* Problem Noted Date Diagnosed Date Resolved Date Patient request for diagnostic testing 08/21/2022 01/17/2023 Overview: 08/21/2022 Patient desires aneuploidy screening. Contact information for [facility] given to patient to check on insurance coverage. Patient considering genetic carrier screening testing. Contact information for [employer] rep given to patient to check on insurance coverage.Agnes Saenz RN documented as of this encounter (statuses as of 01/29/2023) [facility] History of Past illness Narrative* Problem Noted Date Diagnosed Date Resolved Date Patient request for diagnostic testing 08/21/2022 01/17/2023 Overview: 08/21/2022 Patient desires aneuploidy screening. Contact information for [facility] given to patient to check on insurance coverage. Patient considering genetic carrier screening testing. Contact information for [employer] rep given to patient to check on insurance coverage.Agnes Saenz RN documented as of this encounter (statuses as of 02/12/2023) [facility] History of Past illness Narrative* Problem Noted Date Diagnosed Date Resolved Date Patient request for diagnostic testing 08/21/2022 01/17/2023 Overview: 08/21/2022 Patient desires aneuploidy screening. Contact information for [facility] given to patient to check on insurance coverage. Patient considering genetic carrier screening testing. Contact information for [employer] rep given to patient to check on insurance coverage.Agnes Saenz RN documented as of this encounter (statuses as of 02/14/2023) [facility] History of Past illness Narrative* Problem Noted Date Diagnosed Date Resolved Date Patient request for diagnostic testing 08/21/2022 01/17/2023 Overview: 08/21/2022 Patient desires aneuploidy screening. Contact information for [facility] given to patient to check on insurance coverage. Patient considering genetic carrier screening testing. Contact information for [employer] rep given to patient to check on insurance coverage.Agnes Saenz RN documented as of this encounter (statuses as of 02/22/2023) [facility] History of Past illness Narrative* Problem Noted Date Diagnosed Date Resolved Date Patient request for diagnostic testing 08/21/2022 01/17/2023 Overview: 08/21/2022 Patient desires aneuploidy screening. Contact information for [facility] given to patient to check on insurance coverage. Patient considering genetic carrier screening testing. Contact information for [employer] rep given to patient to check on insurance coverage.Agnes Saenz RN documented as of this encounter (statuses as of 02/28/2023) [facility] History of Past illness Narrative* Problem Noted Date Diagnosed Date Resolved Date Patient request for diagnostic testing 08/21/2022 01/17/2023 Overview: 08/21/2022 Patient desires aneuploidy screening. Contact information for [facility] given to patient to check on insurance coverage. Patient considering genetic carrier screening testing. Contact information for [employer] blanco given to patient to check on insurance coverage.Agnes Saenz RN documented as of this encounter (statuses as of 03/22/2023) [facility] History of Past illness Narrative* Problem Noted Date Diagnosed Date Resolved Date Patient request for diagnostic testing 08/21/2022 01/17/2023 Overview: 08/21/2022 Patient desires aneuploidy screening. Contact information for [facility] given to patient to check on insurance coverage. Patient considering genetic carrier screening testing. Contact information for [employer] bl[employer] given to patient to check on insurance coverage.Agnes Saenz RN documented as of this encounter (statuses as of 03/28/2023) [facility]03-08-2023 History of Past illness Narrative* Problem Noted Date Diagnosed Date Resolved Date Patient request for diagnostic testing 08/21/2022 01/17/2023 Overview: 08/21/2022 Patient desires aneuploidy screening. Contact information for integrated genetics given to patient to check on insurance coverage. Patient considering genetic carrier screening testing. Contact information for Ailin blanco given to patient to check on insurance coverage.Agnes Saenz RN documented as of this encounter (statuses as of 04/03/2023) [facility]03-08-2023 History of Past illness Narrative* Problem Noted Date Diagnosed Date Resolved Date Patient request for diagnostic testing 08/21/2022 01/17/2023 Overview: 08/21/2022 Patient desires aneuploidy screening. Contact information for integrated genetics given to patient to check on insurance coverage. Patient considering genetic carrier screening testing. Contact information for [employer] rep given to patient to check on insurance coverage.Agnes Saenz RN documented as of this encounter (statuses as of 04/07/2023) [facility]03-08-2023 History of Past illness Narrative* Problem Noted Date Diagnosed Date Resolved Date Patient request for diagnostic testing 08/21/2022 01/17/2023 Overview: 08/21/2022 Patient desires aneuploidy screening. Contact information for integrated genetics given to patient to check on insurance coverage. Patient considering genetic carrier screening testing. Contact information for [employer] given to patient to check on insurance coverage.Agnes Saenz RN documented as of this encounter (statuses as of 04/12/2023) [facility]03-08-2023 History of Past illness Narrative* Problem Noted Date Diagnosed Date Resolved Date Patient request for diagnostic testing 08/21/2022 01/17/2023 Overview: 08/21/2022 Patient desires aneuploidy screening. Contact information for integrated genetics given to patient to check on insurance coverage. Patient considering genetic carrier screening testing. Contact information for Ailin blanco given to patient to check on insurance coverage.Agnes Saenz RN documented as of this encounter (statuses as of 05/15/2023) [facility]03-08-2023 Miscellaneous Notes* Quick Notes - Agnes Saenz RN - 08/21/2022 8:17 AM EST DISTANCE HEALTH VISIT This Team Access Model visit is a phone encounter. It required patient-provider interaction for themedical decision making as documented below. Alisa Carey is a 26 year old female seen for PNOB. Father of the baby involved. Patient stopped vaping nicotine when she found out she was . Discussed risks of vaping during and advised patient to continue not using. Patient's aunt born with hole in the heart and had corrective surgery. at age 12. Patient desires aneuploidy screening. Contact information for integrated genetics given to patient to check on insurance coverage. Patient considering genetic carrier screening testing. Contact information for [employer] rep given to patient to check on insurance coverage.Agnes Saenz RN documented in [facility] Miscellaneous Notes* Telephone Encounter - Won Devlin MD - 08/15/2022 11:57 AM EST Hcg quants rising well Proceed with appointments as scheduled Won Devlin MD * Telephone Encounter - Agnes Saenz RN - 08/14/2022 11:21 AM EST Patient had quants drawn recently and wanted to get results Component Ref Range & Units 1 d ago 5 d ago hCG Quantitative, Blood <5.0 mIU/mL 23,682.0 High 6,469.0 High CM I scheduled PNOB and NOB appointments, Patient had been seen for pelvic pain on 07/29. She states she has not had any pelvic pain x 8 days. Denies any bleeding this . Patient to call/come inif any development of pain or bleeding or PRN problems. I told patient we would only call her back regarding qunt HCG's if Dr Devlin had any further advice when she returned to office 08/15 documented in this [facility]Paul[facility] Miscellaneous Notes* Telephone Encounter - Evelyn Cancino RN - 08/14/2022 9:20 AM EST Call placed to patient to triage for new OB appt. Name and identified. LMP? 07/05/2022 PNV? yes Cats? Yes- - patient aware of litter box precautions Pelvic pain? no Vaginal bleeding? no Precautions for both discussed with patient understanding. Any issues that can effect the ? PCOS, patient aware she can see a general OB Office patient wishes to establish care to? Grisel Will forward this encounter to the schedulers in this office. * Telephone Encounter - Evelyn Cancino RN - 08/14/2022 9:19 AM EST ----- Message from Zhanna Abdullahi sent at 08/13/2022 5:04 PM EST ----- Regarding: LMP 07/05/22 Patient has been identified by name and Date of : Yes Patient: Alisa Carey Date of : 1995 Provider for this encounter : No primary care provider on file. Reason for call: Triage Was an appointment scheduled: No Reason for requesting visit (RFV/signs and symptoms/diagnosis) : AND HAS PCOS Person calling: self Return call to: self Call patient at: on cell [phone] (home) [phone] (cell) Payor: [employer] / Plan: [employer] OAP / Product Type: Open Access / Zhanna Abdullahi documented in this encounterPaul[facility] Miscellaneous Notes* Telephone Encounter - Evelyn Miller RN - 08/12/2022 4:27 PM EST See other [employer] message. * Telephone Encounter - Evelyn Miller RN - 08/12/2022 10:19 AM EST hCG Quantitative, Blood (mIU/mL) Date Value 08/09/2022 6,469.0 See other [employer] message documented in this encounterPaulding [facility]02[facility]23 Miscellaneous Notes* Telephone Encounter - Won Devlin MD - 08/08/2022 4:27 PM EST Hcg quant ordered I recommend she get all 3 labs drawn tomorrow AM between 7&9am Won Devlin MD * Telephone Encounter - Bri Roa LPN - 08/08/2022 4:17 PM EST Pt stated that she has noted her breast being very tender and she had missed her pills a couple times. Pt took test and had a positive result. Pt wanting to know if this is accurate or if the abnormal labs could cause this to be abnormal. Please advise. Bri Roa LPN * Telephone Encounter - Won Devlin MD - 08/08/2022 3:53 PM EST I would like to get a repeat fasting level of hydroxyprogesterone (during the follicular part of her menstrual cycle which is the first half of her cycle or menses through ovulation). She can get this & the prolactin on the same day. Patient will likely need to see an tugboat mate of either of these levels remain elevated. I have placed an endocrinology consult as they usually schedule a few weeks out. Won Devlin MD * Telephone Encounter - Bri Roa LPN - 08/08/2022 11:58 AM EST Please see pt's [employer] message and advise further. Bri Roa LPN documented in this encounterPaulding [facility]02-[facility]23 NoteHNO ID: [id number] Author: Won Devlin MD Service: ? Author Type: Physician Type: Progress Notes Filed: 08/02/2022 1:44 PM Note Text: Alisa Carey is a 26 year old female who presents for problem visit. HPI: Patient presents with questions about her US and PCOS. 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 2018 PAST SURGICAL HISTORY Procedure Laterality Date NONE FAMILY HISTORY Problem Relation Age of Onset Hypertension Mother Breast Cancer Mother Hypertension Father Hypertension Sister No Known Problems Sister No Known Problems Sister Stroke Maternal Grandmother Diabetes Maternal Grandfather Social History Tobacco Use Smoking status: Never Smokeless tobacco: Never Vaping Use Vaping Use: current everyday user Substances: Nicotine Substance Use Topics Alcohol use: Yes Comment: Socially Drug use: No Current Outpatient Medications Medication Sig Drospirenone-Ethinyl Estradiol 3-0.03 mg per tablet Take 1 tablet by mouth once daily. No current facility-administered medications for this visit. Allergies As of Date: 08/02/2022 (No Known Allergies) Fully Assessed 08/02/2022 Allergies and current medication updated:Yes EXAM: BP 102/70 Wt 155 lb 3.2 oz (70.4kg) LMP 07/05/2022 GENERAL: pleasant, female in no apparent distress ASSESSMENT AND PLAN: 26yo female with possible PCOS Reviewed US findings AND all questions answered Check PCOS labs Discussed healthy lifestyle to control PCOS Continue ocps to prevent ovarian cysts Medical Decision Making: Problems: Low: Stable chronic illness Data: Unique test(s) ordered: 3+ Risk: Low: Low risk from testing/treatment Medical Decision Making Level: 3 - Low Won Devlin [facility]02-17-2023 History of Present illness Narrative* Won Devlin MD - 08/02/2022 1:16 PM EST Alisa Carey is a 26 year old female who presents for problem visit. HPI: Patient presents with questions about her US and PCOS. 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 2018 PAST SURGICAL HISTORY Procedure Laterality Date NONE FAMILY HISTORY Problem Relation Age of Onset Hypertension Mother Breast Cancer Mother Hypertension Father Hypertension Sister No Known Problems Sister No Known Problems Sister Stroke Maternal Grandmother Diabetes Maternal Grandfather Social History Tobacco Use Smoking status: Never Smokeless tobacco: Never Vaping Use Vaping Use: current everyday user Substances: Nicotine Substance Use Topics Alcohol use: Yes Comment: Socially Drug use: No Current Outpatient Medications Medication Sig Drospirenone-Ethinyl Estradiol 3-0.03 mg per tablet Take 1 tablet by mouth once daily. No current facility-administered medications for this visit. Allergies As of Date: 08/02/2022 (No Known Allergies) Fully Assessed 08/02/2022 Allergies and current medication updated:Yes EXAM: BP 102/70 Wt 155 lb 3.2 oz (70.4kg) LMP 07/05/2022 GENERAL: pleasant, female in no apparent distress ASSESSMENT AND PLAN: 26yo female with possible PCOS Reviewed US findings & all questions answered Check PCOS labs Discussed healthy lifestyle to control PCOS Continue ocps to prevent ovarian cysts Medical Decision Making: Problems: Low: Stable chronic illness Data: Unique test(s) ordered: 3+ Risk: Low: Low risk from testing/treatment Medical Decision Making Level: 3 - Low Won Devlin MD documented in this encounterPaulding [facility] Hospital02-13-2023 NoteHNO ID: [id number] Author: Cathi Stewart APRN.CNM Service: ? Author Type: Residential Gas Heat Technician Type: Progress Notes Filed: 07/29/2022 1:03 PM Note Text: Alisa Carey is a 26 year old female who presents for follow up visit after pelvic ultrasound. Seen last week for pelvic pain and here today for pelvic ultrasound. Cystic ovaries seen on ultrasound. Possible 2 right ovaries visualized. Uterus normal without any polyps or fibroids. Reviewed findings with patient and discussed PCOS. Questions answered. She denies any current pelvic pain. 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 2018 PAST SURGICAL HISTORY Procedure Laterality Date NONE FAMILY HISTORY Problem Relation Age of Onset Hypertension Mother Breast Cancer Mother Hypertension Father Hypertension Sister No Known Problems Sister No Known Problems Sister Stroke Maternal Grandmother Diabetes Maternal Grandfather Social History Tobacco Use Smoking status: Never Smokeless tobacco: Never Vaping Use Vaping Use: current everyday user Substances: Nicotine Substance Use Topics Alcohol use: Yes Comment: Socially Drug use: No Current Outpatient Medications Medication Sig Drospirenone-Ethinyl Estradiol 3-0.03 mg per tablet Take 1 tablet by mouth once daily. No current facility-administered medications for this visit. Allergies As of Date: 07/29/2022 (No Known Allergies) Fully Assessed 07/29/2022 REVIEW OF SYSTEMS Abdomen: No bloating, early satiety, indigestion, or increased flatulence. No abdominal pain, nausea, vomiting, diarrhea, or constipation. Bladder: No dysuria, gross hematuria, urinary frequency, urinary urgency, or incontinence. Breast: No breast lumps, nipple d/c, overlying skin changes, redness or skin retraction. Expanded ROS: N/A Allergies and current medication updated:Yes EXAM: Wt 154 lb (69.9kg) LMP 07/05/2022 GENERAL: pleasant, female in no apparent distress HEENT: Normocephalic NECK: Supple and full range of motion DERMATOLOGY: Normal and without lesions BREAST: deferred CHEST: Normal inspiratory effort ABDOMEN: Deferred PELVIC: deferred BIMANUAL: deferred NEURO: alert and oriented x3,exam grossly non-focal EXTREMITIES: normal ASSESSMENT/PLAN: 1. Pelvic pain in female - ICD9: 625.9, ICD10: R10.2 (primary diagnosis) 2. Polycystic bilateral ovaries - ICD9: 256.4, ICD10: E28.2 Plan: 1- Reviewed PCOS, with patient- she has always had regular cycles, no hirsutism and minor acne 2- Continue OCP as previously taken 3- Ibuprofen 800 mg PO every 8 hours for pain during cycle for pain 4- She plans on stopping OCP in the future and may try natural family planning RTO- as needed and for yearly exams Cathi Stewart APRN.[facility]02-08-2023 NoteHNO ID: [id number] Author: Cathi Stewart APRN.[facility] Service: ? Author Type: Residential Gas Heat Technician Type: Progress Notes Filed: 07/24/2022 10:39 AM Note Text: Compliance Manager offered: Patient declines. Alisa Carey is a 26 year old female who presents for problem visit of pelvic pain starting last Friday. Walking and felt sharp achy cramp in lower pelvic area. Pain comes and goes. Pain notices pain with coughing, sneezing or sitting a certain way. Rates pain 4/10. Pain has been more frequent this week and went to Urgent Care which sent her here. Denies pain with intercourse but notices pain at times up to 24 hours after. Denies any pain or bleeding with intercourse. LMP 07/05/22. Using OCP for birthcontrol. Verbally consented to STD screening. 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 LMP: 07/05/2022, Having periods Age at Menarche: Age at First : Age at Menopause: 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 Comments: Sexual Activity: Yes; Male Contraception: Pill PAST MEDICAL HISTORY Diagnosis Date ASCUS with positive high risk HPV cervical 2018 PAST SURGICAL HISTORY Procedure Laterality Date NONE FAMILY HISTORY Problem Relation Age of Onset Hypertension Mother Hypertension Father Hypertension Sister Stroke Maternal Grandmother Diabetes Maternal Grandfather No Known Problems Sister No Known Problems Sister Social History Tobacco Use Smoking status: Never Smokeless tobacco: Never Vaping Use Vaping Use: current everyday user Substances: Nicotine Substance Use Topics Alcohol use: Yes Comment: Socially Drug use: No Current Outpatient Medications Medication Sig Drospirenone-Ethinyl Estradiol 3-0.03 mg per tablet Take 1 tablet by mouth once daily. No current facility-administered medications for this visit. Allergies As of Date: 07/24/2022 (No Known Allergies) Fully Assessed 07/24/2022 REVIEW OF SYSTEMS Abdomen: No bloating, early satiety, indigestion, or increased flatulence. No abdominal pain, nausea, vomiting, diarrhea, or constipation. Bladder: No dysuria, gross hematuria, urinary frequency, urinary urgency, or incontinence. Breast: No breast lumps, nipple d/c, overlying skin changes, redness or skin retraction. Expanded ROS: N/A Allergies and current medication updated:Yes EXAM: BP 100/68 Wt 153 lb 6.4 oz (69.6kg) LMP 07/05/2022 GENERAL: pleasant, female in no apparent distress HEENT: Normocephalic and atraumatic NECK: Supple and full range of motion DERMATOLOGY: Normal and without lesions BREAST: deferred CHEST: Normal inspiratory effort ABDOMEN: soft, non-tender, and no masses PELVIC: external genitalia normal, normal Bartholin's glands, urethra, Grawn's glands, no vulvar lesions, no cervical lesions, good vaginal support, physiologic discharge present, normal appearing perineal body and perianal region BIMANUAL: uterus normal size, shape and consistency, no adnexal masses, non-tender, and no cervical motion tenderness NEURO: alert and oriented x3,exam grossly non-focal EXTREMITIES: normal ASSESSMENT/PLAN: 1. Pelvic pain in female - ICD9: 625.9, ICD10: R10.2 (primary diagnosis) - BACTERIAL VAGINOSIS AMPLIFICATION - ROCAEL / TRICHOMONAS AMPLIFICATION - US FEMALE PELVIS TRANSVAG - PELVIC US WHI - GC/CHLAMYDIA DNA DET - HCG QUAL UR B/O- NEGATIVE 2. Screen for STD (sexually transmitted disease) - ICD9: V74.5, ICD10: Z11.3 Will notify patient of results and plan of care after pelvic ultrasound Cathi Stewart APRN.[facility]02-08-2023 NoteHNO ID: [id number] Author: CLAUDE Banks Service: ? Author Type: Physician Hotel Or Motel Cleaning Supervisor Type: Progress Notes Filed: 07/24/2022 8:02 AM Note Text: 26-year-old female presented today for pelvic pain. Patient states this is happened a few times over the past month. She states usually it is a few days after intercourse. She gets a pelvic pain/pressure. No urinary symptoms. No abnormal vaginal bleeding or discharge. No concern for STD. The pain is not one-sided, more cental pelvic area. She states it comes and goes. She has an appointment with her base loader tomorrow, but states that the pain was more severe this morning, so came in for evaluation. Due to limited capabilities in [facility], I recommended evaluation with her base loader. We were able to move up her appointment to this morning. She will see women's health today at 9:30 Am for evaluation.[facility]02-08-2023 History of Present illness Narrative* Cathi Stewart APRN.[facility] - 07/24/2022 9:31 AM EST Compliance Manager offered: Patient declines. Alisa Carey is a 26 year old female who presents for problem visit of pelvic pain starting last Friday. Walking and felt sharp achy cramp in lower pelvic area. Pain comes and goes. Pain noticespain with coughing, sneezing or sitting a certain way. Rates pain 4/10. Pain has been more frequentthis week and went to Urgent Care which sent her here. Denies pain with intercourse but notices pain at times up to 24 hours after. Denies any pain or bleeding with intercourse. LMP 07/05/22. Using OCP for birthcontrol. Verbally consented to STD screening. 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 LMP: 07/05/2022, Having periods Age at Menarche: Age at First : Age at Menopause: 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 Comments: Sexual Activity: Yes; Male Contraception: Pill PAST MEDICAL HISTORY Diagnosis Date ASCUS with positive high risk HPV cervical 2018 PAST SURGICAL HISTORY Procedure Laterality Date NONE FAMILY HISTORY Problem Relation Age of Onset Hypertension Mother Hypertension Father Hypertension Sister Stroke Maternal Grandmother Diabetes Maternal Grandfather No Known Problems Sister No Known Problems Sister Social History Tobacco Use Smoking status: Never Smokeless tobacco: Never Vaping Use Vaping Use: current everyday user Substances: Nicotine Substance Use Topics Alcohol use: Yes Comment: Socially Drug use: No Current Outpatient Medications Medication Sig Drospirenone-Ethinyl Estradiol 3-0.03 mg per tablet Take 1 tablet by mouth once daily. No current facility-administered medications for this visit. Allergies As of Date: 07/24/2022 (No Known Allergies) Fully Assessed 07/24/2022 REVIEW OF SYSTEMS Abdomen: No bloating, early satiety, indigestion, or increased flatulence. No abdominal pain, nausea, vomiting, diarrhea, or constipation. Bladder: No dysuria, gross hematuria, urinary frequency, urinary urgency, or incontinence. Breast: No breast lumps, nipple d/c, overlying skin changes, redness or skin retraction. Expanded ROS: N/A Allergies and current medication updated:Yes EXAM: BP 100/68 Wt 153 lb 6.4 oz (69.6kg) LMP 07/05/2022 GENERAL: pleasant, female in no apparent distress HEENT: Normocephalic and atraumatic NECK: Supple and full range of motion DERMATOLOGY: Normal and without lesions BREAST: deferred CHEST: Normal inspiratory effort ABDOMEN: soft, non-tender, and no masses PELVIC: external genitalia normal, normal Bartholin's glands, urethra, Grawn's glands, no vulvar lesions, no cervical lesions, good vaginal support, physiologic discharge present, normal appearing perineal body and perianal region BIMANUAL: uterus normal size, shape and consistency, no adnexal masses, non- tender, and no cervicalmotion tenderness NEURO: alert and oriented x3,exam grossly non-focal EXTREMITIES: normal ASSESSMENT/PLAN: 1. Pelvic pain in female - ICD9: 625.9, ICD10: R10.2 (primary diagnosis) - BACTERIAL VAGINOSIS AMPLIFICATION - ROCAEL / TRICHOMONAS AMPLIFICATION - US FEMALE PELVIS TRANSVAG - PELVIC US WHI - GC/CHLAMYDIA DNA DET - HCG QUAL UR B/O- NEGATIVE 2. Screen for STD (sexually transmitted disease) - ICD9: V74.5, ICD10: Z11.3 Will notify patient of results and plan of care after pelvic ultrasound Cathi Stewart APRN.CNM documented in this encounterPaulding [facility]02-[facility]23 History of Present illness Narrative* CLAUDE Banks - 07/24/2022 8:00 AM EST 26-year-old female presented today for pelvic pain. Patient states this is happened a few times over the past month. She states usually it is a few days after intercourse. She gets a pelvic pain/pressure. No urinary symptoms. No abnormal vaginal bleeding or discharge. No concern for STD. The pain is not one- sided, more cental pelvic area. She states it comes and goes. She has an appointment with her base loader tomorrow, but states that the pain was more severe this morning, so came in for evaluation. Due to limited capabilities in [facility], I recommended evaluation with her base loader.We were able to move up her appointment to this morning. She will see women's health today at 9:30 A m for evaluation. documented in this encounterPaulding [facility]04-11-2022 Miscellaneous Notes* Telephone Encounter - Ana Deluca RN - 09/24/2021 9:43 AM EDT Last annual with 10/26/20. [employer] message to schedule after 10/26. Pending Prescriptions Disp Refills DROSPIRENONE 3 MG-ETHINYL ESTRADIOL 0.03 MG TABLET 84 tablet 0 Sig: take 1 tablet by mouth once daily AASHISH: Yes RX INSTRUCTIONS: Pharmacy initiated this request. No need to notify patient. Ana Deluca RN [facility]* Diagnosis Pelvic pain- [facility] Diagnosis Pelvic pain in female- Primary Unspecified symptom associated with female genital organs Screen for STD (sexually transmitted disease) Screening examination for venereal disease [facility]* Diagnosis Pelvic pain in female- Primary Unspecified symptom associated with female genital organs [facility]* Diagnosis PCOS (polycystic ovarian syndrome)- Primary Polycystic ovaries [facility]* Diagnosis High serum 17-hydroxyprogesterone- Primary Encounter for test, result positive examination or test, positive result documented [facility]* Diagnosis Supervision of normal first , antepartum- Primary History of nicotine vaping Family history of congenital heart defect Family history of congenital anomalies Patient request for diagnostic testing Other specified examination [facility]* Diagnosis Supervision of normal first , antepartum- Primary Obesity in Obesity complicating , childbirth, or the puerperium, unspecified as to episode of care or not applicable [facility]* Diagnosis Supervision of normal first , antepartum- Primary [facility] Diagnosis Pelvic pain in female Unspecified symptom associated with female genital organs [facility]* Diagnosis Nausea and vomiting in - Primary Unspecified vomiting of , unspecified as to episode of care Encounter for supervision of other normal in second trimester 16 weeks gestation of state, incidental [facility] Diagnosis Obesity affecting in second trimester, unspecified obesity type- Primary 23 weeks gestation of state, incidental [facility]* Diagnosis Abnormal glucose complicating - Primary Abnormal maternal glucose tolerance, complicating , childbirth, or the puerperium, unspecified as to episode of care [facility]* Diagnosis 27 weeks gestation of - Primary state, incidental Obesity affecting in second trimester, unspecified obesity type Need for vaccination Need for prophylactic vaccination and inoculation against unspecified single disease [facility] Diagnosis Obesity affecting in second trimester, unspecified obesity type- Primary Abnormal glucose complicating Abnormal maternal glucose tolerance, complicating , childbirth, or the puerperium, unspecified as to episode of care 29 weeks gestation of state, incidental [facility]* Diagnosis Obesity affecting in second trimester, unspecified obesity type- Primary Anemia during in third trimester Fundal height high for dates 31 weeks gestation of state, incidental [facility] Diagnosis Encounter for supervision of normal first in third trimester- Primary Supervision of normal first 32 weeks gestation of state, incidental Decreased movements in third trimester, single or unspecified fetus [facility]* Diagnosis Encounter for ultrasound to check growth- Primary Encounter for routine screening for malformation using ultrasonics Fundal height high for dates 34 weeks gestation of state, incidental [facility] Diagnosis 37 weeks gestation of - Primary state, incidental Encounter for supervision of normal first in third trimester Supervision of normal first [facility]* Diagnosis 38 weeks gestation of - Primary state, incidental Anemia during in third trimester Encounter for supervision of normal first in third trimester Supervision of normal first Uterine size-date discrepancy, third trimester [facility] Diagnosis 38 weeks gestation of - Primary state, incidental Encounter for supervision of normal first in third trimester Supervision of normal first [facility]* Diagnosis care and examination- Primary Routine follow-up Encounter for IUD insertion Encounter for insertion of intrauterine contraceptive device documented in this encounter [facility] for referral (narrative)* Diagnostic Procedure Only (Routine) - Authorized Specialty Diagnoses / Procedures Referred By Shirin downing Referred To Contact [facility] Diagnoses Pelvic pain in female Procedures PELVIC US WHI US PELVIC NONOBSTETRIC REAL-TIME IMAGE COMPLETE Cathi Stewart APRN.CNM [address] [place] [address] [address] Referral ID Status Reason Start Date Expiration Date Visits Requested Visits Authorized [id number] Authorized Auto-Generat ed Referral 07/24/2022 07/24/2023 1 1 * Diagnostic Procedure Only (Routine) - Pending Review Specialty Diagnoses / Procedures Referred By Shirin downing Referred To Contact [facility] Diagnoses Pelvic pain in female Procedures US FEMALE PELVIS TRANSVAG US TRANSVAGINAL Cathi Stewart APRN.CNM [address] [place] [address] [facility] Referral ID Status Reason Start Date Expiration Date Visits Requested Visits Authorized [id number] Pending Review Auto-Generat ed Referral 07/24/2022 08/23/2023 1 1 [facility] for referral (narrative)* Diagnostic Procedure Only (Routine) - Authorized Specialty Diagnoses / Procedures Referred By Contac t Referred To Contact [facility] Diagnoses Supervision of normal first , antepartum Obesity in Procedures NUCHAL TRANSLUCENCY WHI US NUCHAL TRANSLUCENCY 1ST GESTATION Julian Gomez MD [address] [place] [address] [facility] [address] [place] [address] Referral ID Status Reason Start Date Expiration Date Visits Requested Visits Authorized [id number] Authorized Auto-Generat ed Referral 09/03/2022 09/03/2023 1 1 * Diagnostic Procedure Only (Routine) - Pending Review Specialty Diagnoses / Procedures Referred By Contac t Referred To Contact [facility] Diagnoses Supervision of normal first , antepartum Obesity in Procedures OBSTETRIC ULTRASOUND WHI US PREG UTERUS AFTER 1ST TRIMEST GESTATION Julian Gomez MD [address] [place] [address] [facility] [address] [place] [address] Referral ID Status Reason Start Date Expiration Date Visits Requested Visits Authorized [id number] Pending Review Auto-Generat ed Referral 09/03/2022 09/03/2023 1 1 [facility] for referral (narrative)* Diagnostic Procedure Only (Routine) - Pending Review Specialty Diagnoses / Procedures Referred By Contac t Referred To Contact [facility] Diagnoses 16 weeks gestation of Encounter for supervision of other normal in second trimester Procedures OBSTETRIC ULTRASOUND WHI US PREG UTERUS AFTER 1ST TRIMEST GESTATION Julian Gomez MD [address] [place] [address] [place] [id number] Referral ID Status Reason Start Date Expiration Date Visits Requested Visits Authorized [id number] Pending Review Auto-Generat ed Referral 10/30/2022 10/30/2023 1 1 [facility] for referral (narrative)* Diagnostic Procedure Only (Routine) - Authorized Specialty Diagnoses / Procedures Referred By Contac t Referred To Contact [facility] Diagnoses 31 weeks gestation of Fundal height high for dates Procedures OBSTETRIC ULTRASOUND WHI US PREG UTERUS AFTER 1ST TRIMEST GESTATION Julian Gomez MD [address] [place] [address] [phone] [place] [address] Referral ID Status Reason Start Date Expiration Date Visits Requested Visits Authorized [id number] Authorized Auto-Generat ed Referral 02/11/2023 02/11/2024 1 1 T [facility] for referral (narrative)* Diagnostic Procedure Only (Routine) - Pending Review Specialty Diagnoses / Procedures Referred By Contac t Referred To Contact [facility] Diagnoses Encounter for supervision of normal first in third trimester Uterine size-date discrepancy, third trimester Procedures OBSTETRIC ULTRASOUND WHI US PREG UTERUS AFTER 1ST TRIMEST GESTATION Diane Contreras MD [address] [place] [address] [place] [phone] [place] [address] Referral ID Status Reason Start Date Expiration Date Visits Requested Visits Authorized [id number] Pending Review Auto-Generat ed Referral 3 03/27/2024 1 1 * Diagnostic Procedure Only (Routine) - Authorized Specialty Diagnoses / Procedures Referred By Contac t Referred To Contact [facility] Diagnoses 38 weeks gestation of Anemia during in third trimester Encounter for supervision of normal first in third trimester Uterine size-date discrepancy, third trimester Procedures OBSTETRIC ULTRASOUND WHI US PREG UTERUS AFTER 1ST TRIMEST GESTATION Diane Contreras MD [address] [place] [address] [address] Referral ID Status Reason Start Date Expiration Date Visits Requested Visits Authorized [id number] Authorized Auto-Generat ed Referral 3 03/27/2024 1 1 [facility] for referral (narrative)* Outpatient Procedure (Routine) - Pending Review Specialty Diagnoses / Procedures Referred By Contac t Referred To [facility] Diagnoses care and examination Encounter for IUD insertion Procedures INSERT INTRAUTERINE DEVICE INSERT INTRAUTERINE DEVICE Cathi Stewart APRN.CNM [address] [place] [address] [address] Referral ID Status Reason Start Date Expiration Date Visits Requested Visits Authorized [id number] Pending Review Auto-Generat ed Referral 3 05/14/2024 1 1 [facility] for visit Narrative* Diagnostic Procedure Only (Routine) - Closed Specialty Diagnoses / Procedures Referred By Contac t Referred To Contact [facility] Diagnoses Pelvic pain in female Procedures PELVIC US WHI US PELVIC NONOBSTETRIC REAL-TIME IMAGE COMPLETE Cathi Stewart APRN.CN [address] [place] [address] [facility] [address] [place] [address] Referral ID Status Reason Start Date Expiration Date V isits Requested Visits Authorized [id number] Closed Auto-Generate d Referral 07/24/2022 07/24/2023 1 1 [facility] Reason for Referral Specialty Diagnoses / Procedures Referred By Shirin t Referred To Contact Endocrinology Diagnoses High serum 17-hydroxyprogesterone Procedures CONSULT TO ENDOCRINOLOGY OFFICE/OUTPATIENT NEW HIGH MDM 60-74 MINUTES Won Dvelin MD [address] [place] [address] Referral ID Status Reason Start Date Expiration Date Visits Requested Visits Authorized [id number] Authorized PCP Requested Referral 08/08/2022 08/08/2023 1 1 Health Concerns Problem Noted Date OB Reminders 09/03/2022 Problem Noted Date OB Reminders 09/03/2022 Problem Noted Date OB Reminders 09/03/2022 Problem Noted Date OB Reminders 09/03/2022 Problem Noted Date OB Reminders 09/03/2022 Problem Noted Date OB Reminders 09/03/2022 Problem Noted Date OB Reminders 09/03/2022 Problem Noted Date Diagnosed Date OB Reminders 09/03/2022 Problem Noted Date Diagnosed Date OB Reminders 09/03/2022 Problem Noted Date Diagnosed Date OB Reminders 09/03/2022 Problem Noted Date Diagnosed Date OB Reminders 09/03/2022 Problem Noted Date Diagnosed Date OB Reminders 09/03/2022 Problem Noted Date Diagnosed Date OB Reminders 09/03/2022 Problem Noted Date Diagnosed Date OB Reminders 09/03/2022 Problem Noted Date Diagnosed Date OB Reminders 09/03/2022 Problem Noted Date Diagnosed Date OB Reminders 09/03/2022 Summary Purpose Family History No Family History Records Found Advance Directives No Advanced Directives Records Found Additional Source Comments Source Comments (unrecognize d section and content) In the event this informatio n is protected by the Federal Confidentiality of Alcohol and Drug Abuse Patient Records regulations: The Federal rules restrict any use of the information to criminally investigate or prosecute any alcohol or drug abuse patient.[facility] the event this information is protected by the Federal Confidentiality of Alcohol and Drug Abuse Patient Records regulations: The Federal rules restrict any use of the information to criminally investigate or prosecute any alcohol or drug abuse patient.[facility] the event this information is protected by the Federal Confidentiality of Alcohol and Drug Abuse Patient Records regulations: The Federal rules restrict any use of the information to criminally investigate or prosecute any alcohol or drug abuse patient.[facility] the event this information is protected by the Federal Confidentiality of Alcohol and Drug Abuse Patient Records regulations: The Federal rules restrict any use of the information to criminally investigate or prosecute any alcohol or drug abuse patient.[facility] the event this information is protected by the Federal Confidentiality of Alcohol and Drug Abuse Patient Records regulations: The Federal rules restrict any use of the information to criminally investigate or prosecute any alcohol or drug abuse patient.[facility] the event this information is protected by the Federal Confidentiality of Alcohol and Drug Abuse Patient Records regulations: The Federal rules restrict any use of the information to criminally investigate or prosecute any alcohol or drug abuse patient.[facility] the event this information is protected by the Federal Confidentiality of Alcohol and Drug Abuse Patient Records regulations: The Federal rules restrict any use of the information to criminally investigate or prosecute any alcohol or drug abuse patient.[facility] the event this information is protected by the Federal Confidentiality of Alcohol and Drug Abuse Patient Records regulations: The Federal rules restrict any use of the information to criminally investigate or prosecute any alcohol or drug abuse patient.[facility] the event this information is protected by the Federal Confidentiality of Alcohol and Drug Abuse Patient Records regulations: The Federal rules restrict any use of the information to criminally investigate or prosecute any alcohol or drug abuse patient.[facility] the event this information is protected by the Federal Confidentiality of Alcohol and Drug Abuse Patient Records regulations: The Federal rules restrict any use of the information to criminally investigate or prosecute any alcohol or drug abuse patient.[facility] the event this information is protected by the Federal Confidentiality of Alcohol and Drug Abuse Patient Records regulations: The Federal rules restrict any use of the information to criminally investigate or prosecute any alcohol or drug abuse patient.[facility] the event this information is protected by the Federal Confidentiality of Alcohol and Drug Abuse Patient Records regulations: The Federal rules restrict any use of the information to criminally investigate or prosecute any alcohol or drug abuse patient.[facility] the event this information is protected by the Federal Confidentiality of Alcohol and Drug Abuse Patient Records regulations: The Federal rules restrict any use of the information to criminally investigate or prosecute any alcohol or drug abuse patient.[facility] the event this information is protected by the Federal Confidentiality of Alcohol and Drug Abuse Patient Records regulations: The Federal rules restrict any use of the information to criminally investigate or prosecute any alcohol or drug abuse patient.[facility] the event this information is protected by the Federal Confidentiality of Alcohol and Drug Abuse Patient Records regulations: The Federal rules restrict any use of the information to criminally investigate or prosecute any alcohol or drug abuse patient.[facility] the event this information is protected by the Federal Confidentiality of Alcohol and Drug Abuse Patient Records regulations: The Federal rules restrict any use of the information to criminally investigate or prosecute any alcohol or drug abuse patient.[facility] the event this information is protected by the Federal Confidentiality of Alcohol and Drug Abuse Patient Records regulations: The Federal rules restrict any use of the information to criminally investigate or prosecute any alcohol or drug abuse patient.[facility] the event this information is protected by the Federal Confidentiality of Alcohol and Drug Abuse Patient Records regulations: The Federal rules restrict any use of the information to criminally investigate or prosecute any alcohol or drug abuse patient.[facility] the event this information is protected by the Federal Confidentiality of Alcohol and Drug Abuse Patient Records regulations: The Federal rules restrict any use of the information to criminally investigate or prosecute any alcohol or drug abuse patient.[facility] the event this information is protected by the Federal Confidentiality of Alcohol and Drug Abuse Patient Records regulations: The Federal rules restrict any use of the information to criminally investigate or prosecute any alcohol or drug abuse patient.[facility] the event this information is protected by the Federal Confidentiality of Alcohol and Drug Abuse Patient Records regulations: The Federal rules restrict any use of the information to criminally investigate or prosecute any alcohol or drug abuse patient.[facility] the event this information is protected by the Federal Confidentiality of Alcohol and Drug Abuse Patient Records regulations: The Federal rules restrict any use of the information to criminally investigate or prosecute any alcohol or drug abuse patient.[facility] the event this information is protected by the Federal Confidentiality of Alcohol and Drug Abuse Patient Records regulations: The Federal rules restrict any use of the information to criminally investigate or prosecute any alcohol or drug abuse patient.[facility] the event this information is protected by the Federal Confidentiality of Alcohol and Drug Abuse Patient Records regulations: The Federal rules restrict any use of the information to criminally investigate or prosecute any alcohol or drug abuse patient.[facility] the event this information is protected by the Federal Confidentiality of Alcohol and Drug Abuse Patient Records regulations: The Federal rules restrict any use of the information to criminally investigate or prosecute any alcohol or drug abuse patient.[facility] the event this information is protected by the Federal Confidentiality of Alcohol and Drug Abuse Patient Records regulations: The Federal rules restrict any use of the information to criminally investigate or prosecute any alcohol or drug abuse patient.[facility] the event this information is protected by the Federal Confidentiality of Alcohol and Drug Abuse Patient Records regulations: The Federal rules restrict any use of the information to criminally investigate or prosecute any alcohol or drug abuse patient.[facility] the event this information is protected by the Federal Confidentiality of Alcohol and Drug Abuse Patient Records regulations: The Federal rules restrict any use of the information to criminally investigate or prosecute any alcohol or drug abuse patient.[facility] the event this information is protected by the Federal Confidentiality of Alcohol and Drug Abuse Patient Records regulations: The Federal rules restrict any use of the information to criminally investigate or prosecute any alcohol or drug abuse patient.[facility] the event this information is protected by the Federal Confidentiality of Alcohol and Drug Abuse Patient Records regulations: The Federal rules restrict any use of the information to criminally investigate or prosecute any alcohol or drug abuse patient.[facility]In the event this information is protected by the Federal Confidentiality of Alcohol and Drug Abuse Patient Records regulations: The Federal rules restrict any use of the information to criminally investigate or prosecute any alcohol or drug abuse patient.[facility] the event this information is protected by the Federal Confidentiality of Alcohol and Drug Abuse Patient Records regulations: The Federal rules restrict any use of the information to criminally investigate or prosecute any alcohol or drug abuse patient.[facility] the event this information is protected by the Federal Confidentiality of Alcohol and Drug Abuse Patient Records regulations: The Federal rules restrict any use of the information to criminally investigate or prosecute any alcohol or drug abuse patient.[facility] the event this information is protected by the Federal Confidentiality of Alcohol and Drug Abuse Patient Records regulations: The Federal rules restrict any use of the information to criminally investigate or prosecute any alcohol or drug abuse patient.[facility] Reason for Visit (unrecogniz ed section and content) Reason Comments Vaginal Problem Reason Comments Pelvic Pain Reason Comments Follow Up Second opinion for u ltrasound results Reason Comments 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 Reason Comments Care Reason Comments Care Reason Comments Results Horizon Reason Comments Results Reason Onset Date Comments Care 10/30/2022 Reason Comments Forms/letter Reason Onset Date Comments Care 12/19/2022 Reason Onset Date Comments Care 01/16/2023 Reason Onset Date Comments Care 01/28/2023 Reason Comments Breast Pump Reason Onset Date Comments Care 02/11/2023 Reason Onset Date Comments Care 02/14/2023 Reason Comments FMLA Paperwork Reason Comments US Specialty Diagnoses / Procedures Referred By Shirin t Referred To Contact [facility] Diagnoses 31 weeks gestation of Fundal height high for dates Procedures OBSTETRIC ULTRASOUND WHI US PREG UTERUS AFTER 1ST TRIMEST GESTATION Julian Gomez MD [address] [place] [address] [facility] [address] [place] [address] Referral ID Status Reason Start Date Expiration Date V isits Requested Visits Authorized [id number] Closed Auto-Generate d Referral 02/11/2023 02/11/2024 1 1 Reason Onset Date Comments Care 03/21/2023 Reason Onset Date Comments Care 03/28/2023 Reason Onset Date Comments Population Health Navigation Outreach 04/03/2023 Ob/peds Reason Comments Ob Delivery Note Reason Onset Date Comments Care 04/01/2023 Reason Comments Routine INFORMATION SOURCE (unrecogn ized section and content) FOR RECORDS PERTAINING TO PATIENTS WHO ARE OR HAVE BEEN ENROLLED IN A CHEMICAL DEPENDENCY/SUBSTANCEABUSE PROGRAM, SOME INFORMATION MAY BE OMITTED. This clinical summary was aggregated from multiple sources. Caution should be exercised in using it in the provision of clinical care. This summary normalizes information from multiple sources, and as a consequence, information in this document may materially change the coding, format and clinical context of patient data. In addition, data may be omitted in some cases. CLINICAL DECISIONS SHOULD BE BASED ON THE PRIMARY CLINICAL RECORDS. [employer] provides no warranty or guarantee of the accuracy or completeness of information in this document.
[2023-06-30 09:50] LABS: Absolute Lymphocyte Count 1.59 X10^3/uL (0.83-4.51); Absolute Neutrophil Count 4.3 X10^3/uL (2.0-7.7); Basophil# 0.04 X10^3/uL; Basophil% 0.6 % (0-1); Eosinophil# 0.11 X10^3/uL; Eosinophils% 1.7 % (0-5); Hemoglobin 11.4 g/dL (12.0-15.0); Lymphocyte # 1.59 X10^3/ul (0.83-4.51); Lymphocyte % 24.7 % (19-41); Mean Corp Hgb Conc 30.8 g/dL (32-36); Mean Corpuscular Hgb 23.6 pg (27.0-32.0); Mean Corpuscular Volume 76.6 fL (81-99); Mean Platelet Vol. 9.4 fl (6.2-12.0); Monocyte# 0.43 X10^3/uL; Monocyte% 6.7 % (0-10); NRBC Flagged by Analyzer 0 % (0-5); Neutrophil # 4.27 X10^3/uL (2.7-7.7); Neutrophil % 66.1 % (47-70); Platelet Count 225 K/mm3 (150-450); RBC Distribution Width CV 15.8 % (11.6-14.6); Red Blood Count 4.83 M/mm3 (4.2-5.4); White Blood Count 6.5 K/mm3 (4.4-11.0)
[2023-06-30 10:11] LABS: Vitamin B12 288 pg/mL (211-911)
[2023-06-30 10:22] LABS: Cholesterol 167 mg/dL (200); Ferritin 3 ng/mL (8-252); High Density Lipoprotein 91 mg/dL; Iron 31 ug/dL (50-170); Iron Binding Capacity,Total 541 ug/dL (250-450); Thyroid Stim Hormone (TSH) 2.07 uIU/mL (0.358-3.74); Triglycerides 54 mg/dL; Very Low Density Lipoprotein 11 mg/dL (5-40)
[2023-07-01 09:36] LABS: Anion Gap 7 (5-15); BUN 18 mg/dL (7-18); Calcium,Total 9.4 mg/dL (8.5-10.1); Chloride 109 mmol/L (98-107); Creatinine, Serum 0.58 mg/dL (0.55-1.02); EST Glomerular Filtration Rate 133 mL/min (>60); Est Glom Filt Rate - Afr Amer 161 mL/min (>60); Glucose 100 mg/dL (74-106); Potassium 3.9 mmol/L (3.5-5.1); Sodium Level 140 mmol/L (136-145)
== END | disposition home or self-care (01) ==
PROVIDERS: PCP Family Medicine; Referring Provider Family Medicine; Visit Provider Family Medicine
DX: Z00.01 Encounter for general adult medical examination with abnormal findings (principal); D69.49 Other primary thrombocytopenia; D64.9 Anemia, unspecified; E66.9 Obesity, unspecified; Z13.220 Encounter for screening for lipoid disorders
CPT/HCPCS: 36415; 80048; 80061; 82607; 82728; 82746; 83540; 83550; 84443; 85025